=== PATIENT | female | born 2005 | race Caucasian/White ===

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

== ENCOUNTER → 2024-10-25 | Outpatient (CLI) | payer BC, SELFPAY ==
[2024-10-25 17:57] LABS: HIV Nonreactive (Nonreactive); Syphilis Antibodies Nonreactive (Nonreactive)
[2024-10-27 20:08] LABS: HCV Quant. RNA PCR HCV Not Detected IU/mL (.); HSV 1 IgG Non Reactive (Non Reactive); HSV 2 IgG Non Reactive (Non Reactive)
== END | disposition home or self-care (01) ==
PROVIDERS: Visit Provider Nurse Practitioner Women's Health
DX: Z20.2 Contact with and (suspected) exposure to infections with a predominantly sexual mode of transmission (principal)
CPT/HCPCS: 36415; 86695; 86696; 86703; 86780; 87522

== ENCOUNTER → 2024-10-29 | Outpatient (CLI) | payer BC, SELFPAY | END | disposition home or self-care (01) | LOC: LABSPEC 17:03 | PROVIDERS: Referring Provider Nurse Practitioner Family; Visit Provider Nurse Practitioner Family | DX: Z11.3 Encounter for screening for infections with a predominantly sexual mode of transmission (principal) | CPT/HCPCS: 87491; 87591 ==

== ENCOUNTER → 2025-01-26 | Outpatient (CLI) | payer BC, SELFPAY ==
[2025-01-26 15:54] LABS: HIV Nonreactive (Nonreactive); Hepatitis B Surface Antigen Nonreactive (Nonreactive); Syphilis Antibodies Nonreactive (Nonreactive)
[2025-01-27 21:07] LABS: Chlamydia By Nucleic Acid AMP Negative (Negative); Gonococcus By Nucleic Acid AMP Negative (Negative)
== END | disposition home or self-care (01) ==
PROVIDERS: Referring Provider Nurse Practitioner Women's Health; Visit Provider Nurse Practitioner Women's Health
DX: Z20.2 Contact with and (suspected) exposure to infections with a predominantly sexual mode of transmission (principal)
CPT/HCPCS: 36415; 86695; 86696; 86703; 86780; 87340; 87491; 87591

== ENCOUNTER 2025-05-11 09:47 | Emergency (ER) | payer BC, SELFPAY ==
[2025-05-11 09:47] VITALS: BP 105/70; PULSE 97; RESP 16; TEMP 36.1; O2SAT 100; BMI 17.4
[2025-05-11 10:21] LABS: Hematocrit 46.2 % (37-47); Hemoglobin 15.0 g/dL (12.0-15.0); Immature Granulocytes Count 0.010 X10^3/uL (0.0-0.0); Mean Corp Hgb Conc 32.5 g/dL (32-36); Mean Corpuscular Volume 91.3 fL (81-99); Mean Platelet Vol. 10.0 fl (6.2-12.0); NRBC Flagged by Analyzer 0 % (0-5); Platelet Count 239 K/mm3 (150-450); RBC Distribution Width CV 12.6 % (11.6-14.6); RBC Distribution Width SD 42.3 fl (35.1-43.9); Red Blood Count 5.06 M/mm3 (4.2-5.4); White Blood Count 3.8 K/mm3 (4.4-11.0)
[2025-05-11] MEDS: 0.9% Normal Saline (1000mL) 1,000 ML 999 ML IV (10:31)
[2025-05-11 10:33] LABS: Internal QC Validated? YES +Cl - CLEAR BKGD; Pregnancy, Serum, hCG Quali. NEGATIVE Negative
[2025-05-11 10:37] LABS: Red Blood Cells-Urine 0 SEEN /hpf (0-5)
[2025-05-11 10:41] LABS: Color, Urine Yellow (Yellow); Glucose, Dipstick Normal (Normal); Ketone-Dipstick 50 mg/dl (Negative); Leukocyte Esterase-Dipstick 25 /ul (Negative); Nitrite-Dipstick Negative (Negative); Occult Blood-Urine 10 /ul (Negative); Protein-Dipstick 30 mg/dl (Negative); Specific Gravity, Urine 1.025 (1.002-1.030)
[2025-05-11 10:42] LABS: Urine Bilirubin Dipstick 1 mg/dL (Negative)
--- NOTE | 2025-05-11 10:43 | EX.ED.GENINJ ---
HPI History of Present Illness Chief Complaint: Nausea/Vomiting Narrative Narrative: Patient is a 19-year-old female presenting to the emergency department for nausea, vomiting and diarrhea. Patient has past medical history of irregular menstrual cycle. 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 States Friday she started to improve and did really have any symptoms but slept most of the day. She thought she was getting better and ate some regular food yesterday and then developed to the nausea, vomiting and diarrhea again. States last time she vomited was last night around midnight. She had about 4-5 episodes of nonbloody diarrhea yesterday and then 1 time this morning. She endorses some abdominal discomfort that she associates with the nausea. She denies any fever, chills, chest pain, shortness of breath, dysuria, hematuria. She denies any recent antibiotic use or travel or hospitalizations. States that her last period was about 1-1/2 months ago but states that this is normal for her as her periods are irregular. She denies any abnormal vaginal discharge. Denies any history of abdominal surgeries. She has taken Pepto-Bismol for symptomatic control otherwise has not taken any other medications. Endorses occasional alcohol use, denies any marijuana use. 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 ROS ROS ED ROS Narrative see HPI EXAM Physical Exam Narrative Exam Narrative: Vital signs: Reviewed General: Alert and oriented x 3. No acute distress. Well-appearing, nontoxic HEENT: Head is normocephalic and atraumatic, sinuses nontender, pupils equal round and reactive. Nares are patent. Oropharynx and throat exams normal. Moist mucous membranes. Neck: Supple without lymphadenopathy nontender Cardiovascular: Regular rate and rhythm, no murmurs. No rubs or gallops. Normal S1 and S2 Respiratory: Clear to auscultation bilaterally. No wheezes, rales, rhonchi Abdominal: Soft and nontender to palpation. Normal bowel sounds. No guarding or rebound. Nonsurgical abdomen Extremities: No tenderness. No bruising. Normal range of motion. Normal sensation. Skin: No rash or redness. The rest of the physical exam is unremarkable Const Vital Signs: 05/11/25 09:47 05/11/25 11:59 Temperature 96.9 F L 97.6 F L Temperature Source Temporal Pulse Rate 97 97 Respiratory Rate 16 16 Blood Pressure 105/70 105/70 Blood Pressure Mean 81 81 Pulse Ox 100 100 Oxygen Delivery Method Room Air MDM MDM MDM Narrative Medical decision making narrative: Patient is a 19-year-old female presenting to the emergency department for nausea, vomiting and diarrhea that started on Friday. Patient was seen and examined. Vitals are stable. Patient resting bed comfortably no acute distress. Differential includes but is not limited to: Gastroenteritis, viral syndrome, electrolyte imbalance, UTI less likely intra-abdominal pathology including pancreatitis, cholecystitis, appendicitis, colitis or diverticulitis given nontender on abdominal exam Patient given fluid bolus and zofran. Labs including CBC, CMP, lipase, urinalysis, urine preg ordered. Again I do not think the patient requires imaging of her abdomen given she is nontender on exam and has stable vital signs. If she has improvement in her symptoms after fluids and Zofran has a largely negative lab work will continue with plan. CBC with mild leukopenia 3.8 and normal hemoglobin. CMP with no significant normalities. Lipase within normal limits. is negative. Urinalysis with small amount of leukocyte esterase and 1+ bacteria. Negative nitrites and WBC. No other signs of infection. She is not having any urinary symptoms. After Zofran and fluid bolus she p.o. challenge with crackers and water and tolerated well. She states she is feeling much better. Abdominal exam is again unremarkable. She will be given Zofran for home. Instructed to follow-up with PCP for repeat labs to ensure after the viral illness her leukopenia resolves. Patient discharged from the Emergency Department. I do not feel that the patient's evaluation reveals any acute reason for admission at this time. I instructed them to either follow-up with their primary care physician or promptly return to the Emergency Department for reevaluation should symptoms worsen or new symptoms develop. I explained what symptoms would indicate the need to return to the emergency department. Shared decision making was used. The patient voiced understanding of the treatment plan and is agreeable with it. Clinical impression Nausea and vomiting Diarrhea History & Record Review Discussion w/independent historian: Patient and Family Lab Data Attestation: I reviewed the patient's lab results. Labs: Laboratory Results - last 24 hr 05/11/25 05/11/25 10:15 10:34 WBC 3.8 L RBC 5.06 Hgb 15.0 Hct 46.2 MCV 91.3 MCH 29.6 MCHC 32.5 RDW Std Deviation 42.3 RDW Coeff of Alejo 12.6 Plt Count 239 MPV 10.0 Immature Gran % (Auto) 0.300 Neut % (Auto) 57.6 Lymph % (Auto) 30.4 Ritchie % (Auto) 9.7 Eos % (Auto) 1.0 Baso % (Auto) 1.0 Absolute Neuts (auto) 2.2 Absolute Lymphs (auto) 1.16 Nucleated RBC % 0 Sodium 138 Potassium 3.8 Chloride 103 Carbon Dioxide 23.4 Anion Gap 11 BUN 17 Creatinine 0.84 Estim Creat Clear Calc 87.97 Est GFR (MDRD) Non-Af 102 BUN/Creatinine Ratio 20.3 H Glucose 95 Calcium 9.2 Total Bilirubin 0.59 AST 31 ALT 32 Alkaline Phosphatase 55 Total Protein 7.7 Albumin 4.8 Globulin 2.9 Albumin/Globulin Ratio 1.7 Lipase 34 Serum , Qual NEGATIVE Urine Color Yellow Urine Clarity Sl. Cloudy Urine pH 6.0 Ur Specific [place] 1.025 Urine Protein 30 H Urine Glucose (UA) Normal Urine Ketones 50 H Urine Occult Blood 10 H Urine Nitrite Negative Urine Bilirubin 1 H Urine Urobilinogen Normal Ur Leukocyte Esterase 25 H Urine RBC 0 SEEN Urine WBC 0-5 SEEN Ur Squamous Epith Cells 5-10 SEEN Urine Bacteria 1+ Urine Mucus 2+ Discharge Plan Triage Chief Complaint: Nausea/Vomiting ED Provider: Joanne Ellis Dx/Rx/DC Orders Clinical Impression: Nausea, vomiting, and diarrhea Instructions: ED Gastroenteritis, Viral (Adult) Prescriptions: New ondansetron 4 mg tablet,disintegrating 4 mg PO Q8H PRN PRN (Reason: Nausea) Qty: 10 0RF Primary Care Provider: Shraddha Lopez Referrals: Shraddha Lopez, YAHIR [Primary Care Provider, Medical] - As soon as possible Activity Restrictions/Additional Instructions: Take the Zofran every 8 hours for nausea and vomiting. Drink lots of fluids at home. Your evaluation in the Emergency Department did not reveal any acute reason for admission. However, I want to emphasize that you may be early in the course of a disease process or illness even if it is not present. For this reason you should follow-up within 24 hours for reevaluation with either your primary care physician or if necessary back here in the Emergency Department. You should return to the Emergency Department immediately if your symptoms worsen or new symptoms develop. Print Language: Nigerian Disposition Disposition: Home, Self Care Discharge Date/Time: 05/11/25 12:04
--- OUTSIDE RECORDS SUMMARY | 2025-05-11 10:49 | XMS RPT_ITS | CCD ---
Author Organization [facility] Care Team Providers Care Candy Depositing Machine Operator Name Role Phone Whitley Quan MD Primary Care Provider Dr. Whitley Quan Primary Care Provider Dr. Whitley Quan Referring Provider Sonam REVENUE OFFICER, ANDREA-C Bety Attending Provider Whitley Quan MD Primary Care Provider Sonam MENDEZ, ANDREA-C Bety Attending Provider DO Carrie Costa Primary Care Provider DO Carrie Costa Referring Provider Royce Nguyen MD Primary Care Provider GRISEL JOVEL CNP Attending Unavailable GRISEL JOVEL CNP Attending Unavailable Whitley Quan MD Primary Care Provider Royce Nguyen MD Primary Care Provider Erika Batista APRN.CNP Unavailable Shraddha Lopez PA-C Unavailable ROYCE NGUYEN Primary Care Unavailable ROYCE NGUYEN Primary Care Unavailable ROYCE NGUYEN Primary Care Unavailable SHRADDHA LOPEZ Attending Unavailable ROYCE NGUYEN Primary Care Unavailable Sonam MENDEZ-CBety Attending Provider Beth Villagomez Attending Provider Care Physician, No Primary Primary Care Provider Unavailable Beth Villagomez Referring Provider Care Physician, No Primary Referring Provider Un available Sonam REVENUE OFFICER-C, Bety Referring Provider [phone] Sonam REVENUE OFFICER-C, Bety Attending Physician [phone] Manpreet MENDEZ-C, Beth Attending Physician [phone] Care Physician, No Primary Primary Care Physicia n Unavailable Beth Case Attending Unavailable Sonam REVENUE OFFICER, Bety Attending Unavailable Care Physician, No Primary Primary Care Unava ilable Care Physician, No Primary Referring Unava ilable Beth Case Attending Unavailable Sonam REVENUE OFFICER, Bety Attending Unavailable Beth Case Attending Unavailable Beth Case Referring Unavailable Care Physician, No Primary Primary Care Unava ilable Sonam REVENUE OFFICER, Bety Attending Unavailable Sonam REVENUE OFFICER, Bety Referring Unavailable Care Physician, No Primary Primary Care Unava ilable Allergies Allergy Classification Reported Allergen(s) Allergy Type Date of Onset Reaction(s) Facility (12 sources) Seasonal allergy; Translations: [SEASONAL ALLERGIES] Propensity to adverse reactions 4 Other: See Comments [facility] Work Phone: Medications Current Medications Medication Drug Class(es) Dates Sig (Normalized) Sig (Original) amoxicillin 875 mg / clavulanate 125 mg oral tablet (1 source) Penicillin-class Antibacterial Start: 05-04-2024 End: 05-11-2024 take 1 tablet by mouth twice daily amoxicillin-clavul anate potassium (AUGMENTIN) 875-125 mg per tablet Take 1 tablet by mouth two times a day for 7 days. 14 tablet 05/04/2024 05/11/2024 Active brompheniramine maleate 0.4 mg/ml / dextromethorphan hydrobromide 2 mg/ml / pseudoephedrine hydrochloride 6 mg/ml oral solution (2 sources) alpha-Adrenergic Agonist, Uncompetitive X-vghbth-S-aspartat e Receptor Antagonist, Sigma-1 Agonist Start: 05-04-2024 take 10 mL by mouth every six hours as needed Brompheniramine-Ps eudoeph-DM (BROMFED DM) 2-30-10 mg/5 mL syrup Take 10 mL by mouth four times a day as needed. 200 mL 05/04/2024 Active fexofenadine hydrochloride 180 mg oral tablet (8 sources) Histamine-1 Receptor Antagonist Start: 07-21-2023 take 1 tablet by mouth once daily fexofenadine (JULITA ALLERGY) 180 mg tablet Take 1 tablet by mouth once daily. 07/21/2023 Active Comment on above: Take 1 tablet by sivan once daily. fluticasone propionate 0.05 mg/actuat metered dose nasal spray (11 sources) Corticosteroid Start: 09-08-2014 take 1 spray(s) nasal route once daily fluticasone (FLONASE) 50 mcg/actuation nasal spray Use 1 [place] in each nostril once daily. 1 Bottle 0 09/08/2014 Active Comment on above: Use 1 [place] in each nostril once daily. hydrocortisone valerate 2 mg/ml topical cream (1 source) Corticosteroid Start: 11-25-2022 End: 11-30-2022 hydrocortisone valerate (WESTCORT) 0.2 % cream Apply to affected area twice daily for 5 days. 45 g 1 11/25/2022 11/30/2022 Active Comment on above: Apply to affected ar ea twice daily for 5 days. oxymetazoline hydrochloride 0.5 mg/ml nasal spray (3 sources) Start: 05-03-2024 End: 05-08-2024 oxymetazoline (AFRIN, OXYMETAZOLINE,) 0.05 % nasal spray Use 2 Sprays in each nostril two times a day for 5 days. 22 mL 05/03/2024 05/08/2024 Active polymyxin b 51971 unt/ml / trimethoprim 1 mg/ml ophthalmic solution (1 source) Dihydrofolate Reductase Inhibitor Antibacterial, Polymyxin-class Antibacterial Start: 05-04-2024 End: 05-11-2024 take 1 drop(s) into the eye(s) every four hours trimethoprim-polym yxin (POLYTRIM) 10,000 unit- 1 mg/mL ophthalmic solution Use 1 Drop in both eyes every 4 hours for 7 days. 10 mL 05/04/2024 05/11/2024 Active Completed/Discontinued Medications Medication Drug Class(es) Dates Sig (Normalized) Sig (Original) Levonorgestrel-Et hinyl Estrad (20 sources) Progestin, Estrogen, Progestin-containin g Intrauterine Device Start: 10-29-2024 End: 01-26-2025 take 1 tablet by mouth once daily Levonorgestrel-Eth inyl Estrad (Aviane) 0.1-20 mg-mcg tablet Discontinued 1 {tbl} PO daily 15 05October 29, 2024 4:07pm January 26, 2025 11:47am Start: 10-29-2024 take 1 tablet by sivan th once daily Levonorgestrel-Ethinyl Estrad (Aviane) 0.1-20 mg-mcg tablet Active 1 {tbl} PO daily October 29, 2024 4:07pm Start: 10-20-2024 End: 10-29-2024 take 1 tablet by mouth once daily Levonorgestrel-Ethinyl Estrad (Aviane) 0.1-20 mg-mcg tablet Discontinued 1 {tbl} PO daily 15 05October 20, 2024 1:40pm October 29, 2024 4:08pm Start: 10-20-2024 End: 10-29-2024 take 1 tablet by mouth once daily Levonorgestrel-Ethinyl Estrad (Aviane) 0.1-20 mg-mcg tablet Discontinued 1 {tbl} PO daily October 20, 2024 1:40pm October 29, 2024 4:08pm Start: 10-20-2024 take 1 tablet by sivan th once daily Levonorgestrel-Ethinyl Estrad (Aviane) 0.1-20 mg-mcg tablet Active 1 {tbl} PO daily October 20, 2024 1:40pm Start: 08-24-2024 End: 10-20-2024 take 1 tablet by mouth once daily Levonorgestrel-Ethinyl Estrad (Aviane) 0.1-20 mg-mcg tablet Discontinued 1 {tbl} PO daily 15 05August 24, 2024 4:53pm October 20, 2024 1:40pm Start: 08-24-2024 End: 10-20-2024 take 1 tablet by mouth once daily Levonorgestrel-Ethinyl Estrad (Aviane) 0.1-20 mg-mcg tablet Discontinued 1 {tbl} PO daily August 24, 2024 4:53pm October 20, 2024 1:40pm Start: 07-23-2024 End: 08-24-2024 take 1 tablet by mouth once daily Levonorgestrel-Ethinyl Estrad (Aviane) 0.1-20 mg-mcg tablet Discontinued 1 {tbl} PO daily July 23, 2024 6:41pm August 24, 2024 4:54pm Start: 07-23-2024 End: 08-24-2024 take 1 tablet by mouth once daily Levonorgestrel-Ethinyl Estrad (Aviane) 0.1-20 mg-mcg tablet Discontinued 1 {tbl} PO daily July 23, 2024 6:41pm August 24, 2024 4:54pm Start: 06-25-2024 End: 07-23-2024 take 1 tablet by mouth once daily Levonorgestrel-Ethinyl Estrad (Aviane) 0.1-20 mg-mcg tablet Discontinued 1 {tbl} PO daily 15 05June 25, 2024 11:24am July 23, 2024 6:41pm Start: 06-25-2024 End: 07-23-2024 take 1 tablet by mouth once daily Levonorgestrel-Ethinyl Estrad (Aviane) 0.1-20 mg-mcg tablet Discontinued 1 {tbl} PO daily June 25, 2024 11:24am July 23, 2024 6:41pm Start: 04-29-2024 End: 06-25-2024 take 1 tablet by mouth once daily Levonorgestrel-Ethinyl Estrad (Aviane) 0.1-20 mg-mcg tablet Discontinued 1 {tbl} PO daily 15 05April 29, 2024 2:41pm June 25, 2024 11:25am Start: 04-29-2024 End: 06-25-2024 take 1 tablet by mouth once daily Levonorgestrel-Ethinyl Estrad (Aviane) 0.1-20 mg-mcg tablet Discontinued 1 {tbl} PO daily April 29, 2024 2:41pm June 25, 2024 11:25am Start: 04-14-2024 End: 04-29-2024 take 1 tablet by mouth once daily Levonorgestrel-Ethinyl Estrad (Aviane) 0.1-20 mg-mcg tablet Discontinued 1 {tbl} PO daily April 14, 2024 6:49pm April 29, 2024 2:42pm Start: 04-14-2024 End: 04-29-2024 take 1 tablet by mouth once daily Levonorgestrel-Ethinyl Estrad (Aviane) 0.1-20 mg-mcg tablet Discontinued 1 {tbl} PO daily April 14, 2024 6:49pm April 29, 2024 2:42pm Start: 02-03-2024 take 1 tablet by sivan th once Levonorgestrel-Ethinyl Estrad 0.1mg - 20mcg per tablet Take 1 tablet by mouth every afternoon. 02/03/2024 Active Start: 12-09-2023 End: 04-14-2024 take 1 tablet by mouth once daily Levonorgestrel-Ethinyl Estrad (Aviane) 0.1-20 mg-mcg tablet Discontinued 1 {tbl} PO daily 13 09December 09, 2023 12:00am April 14, 2024 6:50pm Start: 12-09-2023 End: 04-14-2024 take 1 tablet by mouth once daily Levonorgestrel-Ethinyl Estrad (Aviane) 0.1-20 mg-mcg tablet Discontinued 1 {tbl} PO daily December 09, 2023 12:00am April 14, 2024 6:50pm fexofenadine / Pseudoephedrine (4 sources) alpha-Adrenergic Agonist, Histamine-1 Receptor Antagonist End: 07-21-2023 take 0.5 tablet by mouth once daily as needed FEXOFENADINE/PSEUDOEPHEDRINE (JULITA-D 24 HOUR ORAL) Take 0.5 tablets by mouth once daily as needed. 07/21/2023 Discontinued End: 07-21-2023 take 0.5 tablet by mouth once daily as needed FEXOFENADINE/PSEUDOEPHEDRINE (JULITA-D 24 HOUR ORAL) Take 0.5 tablets by mouth once daily as needed. 0 07/21/2023 Discontinued take 0.5 tablet by mouth once daily as needed FEXOFENADINE/PSEUDOEPHEDRINE (JULITA-D 24 HOUR ORAL) Take 0.5 tablets by mouth once daily as needed. 0 Active Comment on above: Take 0.5 tablets by mouth once daily as needed. Problems Active Problems Problem Classification Problem Date Documented Date Episodic/Chronic Immunizations and screening for infectious disease (10 sources) At risk of sexually transmitted infection ; Translations: [Contact with and (suspected) exposure to infections with a predominantly sexual mode of transmission] Onset: 01-26-2025 10-29-2024 Episodic Inflammation; infection of eye (except that caused by tuberculosis or sexually transmitteddisease) (1 source) Acute conjunctivitis of bilateral eyes; Translations: [Unspecified acute conjunctivitis, bilateral] 05-04-2024 Episodic Lymphadenitis (2 sources) Axillary lymphadenopathy; Translations: [Localized enlarged lymph nodes] Episodic Menstrual disorders (8 sources) Irregular periods; Translations: [Irregular menstruation, unspecified] 04-29-2024 Chronic Other lower respiratory disease (1 source) Cough; Translations: [Cough] 03-26-2021 Episodic Other screening for suspected conditions (not mental disorders or infectious disease) (4 sources) Patient encounter status; Translations: [Encounter for screening for lipoid disorders] 07-21-2023 Episodic Other skin disorders (1 source) Nonscarring hair loss, unspecified; Translations: [Alopecia, unspecified] 06-12-2023 Episodic Other upper respiratory disease (12 sources) Seasonal allergy; Translations: [Other seasonal allergic rhinitis] Onset: 09-22-2013 09-22-2013 Chronic Other upper respiratory disease (1 source) Congestion of nasal sinus; Translations: [Nasal congestion] 05-04-2024 Episodic Other upper respiratory infections (3 sources) Upper respiratory infection; Translations: [Acute upper respiratory infection, unspecified] Episodic Screening and history of mental health and substance abuse codes (2 sources) Encounter for screening for depression; Translations: [Encounter for screening examination for other mental health and behavioral disorders] Onset: 09-30-2024 Episodic Superficial injury; contusion (7 sources) Contusion of face; Translations: [Contusion of other part of head, initial encounter] 05-15-2021 Episodic Viral infection (1 source) Viral disease; Translations: [Viral infection, unspecified] 05-03-2024 Episodic Past or Other Problems Problem Classification Problem Date Documented Da te Episodic/Chronic Residual codes; unclassified (9 sources) FH: Thyroid disorder; Translations: [Family history of other endocrine, nutritional and metabolic diseases] Onset: 07-21-2023 07-21-2023 Episodic Residual codes; unclassified (9 sources) Family history of cardiac disorder; Translations: [Family history of ischemic heart disease and other diseases of the circulatory system] Onset: 07-21-2023 07-21-2023 Episodic Results Test Name Value Interpretation Reference Range Facility Chlamydia/GC TOÑO aptimaon CHLAMY,NUC ACID Negative Normal Negative [facility] Comment on above: Performed By: #### L 3400.1610, L7000.1800, L509.8002, L3890.6006, L3890.6102 #### [facility] [address] [place], [address] GC BY NUC ACID Negative Normal Negative [facility] Comment on above: Performed By: #### L 3400.1610, L7000.1800, L509.8002, L3890.6006, L3890.6102 #### [facility] [address] [place], [address] HSV 1 AND 2 IgGon 01-27-2025 HSV 1 IgG Non-Reactive Normal Non Reactive [facility] Comment on above: Result Comment: Pl ease note reference interval change HSV-1 IgG testing performed using the [employer] Elecsys HSV-1 IgG assay. Performed By: #### L 3400.1610, L7000.1800, L509.8002, L3890.6006, L3890.6102 #### [facility] [address] [place], [address] HSV 2 IgG Non-Reactive Normal Non Reactive [facility] Comment on above: Result Comment: Pl ease note reference interval change Current guidelines and recommendations do not recommend routine screening for HSV-2 in asymptomatic individuals, including those that are . The detection of HSV-2 IgG antibodies in a single sample indicates previous exposure to HSV-2 but does not give information as to the site of HSV infection or the timing of exposure. The predictive value of positive and negative results depends on the population's prevalence and the pretest likelihood of HSV-2. HSV-2 IgG testing performed using the [employer] Elecsys HSV-2 IgG assay. Performed at: [address] [id number] Crew Supervisor: Emma Brandon MD, Phone: [phone] Performed at: [address] [id number] Crew Supervisor: Cornelio Leo PhD, Phone: [phone] Performed By: #### L 3400.1610, L7000.1800, L509.8002, L3890.6006, L3890.6102 #### [facility] [address] [place], [place], [id number] Chlamydia trachomatis rRNA d etection by probe and target amplification methodOrdered By: Bety Masters on 01-26-2025 C. trachomatis rRNA TOÑO+probe Ql (Unsp spec) Negative Negative [facility] HIVon 01-26-2025 HIV Non-Reactive Normal Nonreactive [facility] Comment on above: Result Comment: Non- Reactive Reactive Repeatedly reactive samples must be confirmed according to CDC recommended confirmatory algorithms. The subresults for either HIVAG or AHIV can be used as an aid in the selection of the confirmation algorithm for reactive samples. Send out specimens with Reactive results to [facility] for confirmation. Order the HIV antibody detection and differentiation: lc#[id number] Performed By: #### L 3400.1610, L7000.1800, L509.8002, L3890.6006, L3890.6102 #### [facility] [address] [place], [address] L3890.6102on 01-26-2025 HEP B Surf Ag Non-Reactive Normal Nonreactive [facility] Comment on above: Result Comment: Reac tive: Presumptive evidence of HBV. Repeatedly reactive samples must be confirmed using a neutralization test (Elecsys HBsAg Confirmatory Test) Non-Reactive: HBsAg not detected; does not exclude the possibility of exposure to HBV Performed By: #### L 3400.1610, L7000.1800, L509.8002, L3890.6006, L3890.6102 #### [facility] [address] [place], [place], [id number] Laboratory - Microbiology an d Antimicrobial susceptibilityOrdered By: Bety Masters on 01-26-2025 HBV surface Ag Ql (S) Non-Reactive Nonreactive [facility] Comment on above: Reactive: Presumptiv e evidence of HBV. Repeatedly reactive samples must be confirmed using a neutralization test (Elec[employer]ok[employer]ys HBsAg Confirmatory Test)Non-Reactive: HBsAg not detected; does not exclude the possibility of exposure to HBV Neisseria gonorrhoeae nuclei c acid detection by amplified probe techniqueOrdered By: Bety Masters on 01-26-2025 N. gonorrhoeae DNA TOÑO+probe Ql (Unsp spec) Negative Negative [facility] No Panel InformationOrdered By: Bety Masters on 01-26-2025 HIV (1&2) Antibody Non-Reactive Nonreactive [facility] Comment on above: Non-ReactiveReactive Repeatedly reactive samples must be confirmed according to CDC recommended confirmatory algorithms. The subresults for either HIVAG or AHIV can be used as an aid in the selection of the confirmation algorithm for reactive samples.Send out specimens with Reactive results to [facility] for confirmation.Order the HIV antibody detection and differentiation: #[id number] POC Trichomonas (Rapid) Negative [facility] Lead Web Application Developer Office Visit Reporton 01-26-2025 Lead Web Application Developer Office Visit Report [facility] [address], [address] [place] [address] OFFICE VISIT Date of Service: 01/26/25 MR#: [id number] Acct: [id number] Name: BARB BENNETT Rep #: [id number] : 2005 Provider: MARIA DEL ROSARIO dutton Age/Sex: 19/F Location[place] [facility] [place] Status: Signed Intake Vital Signs 10/29/24 15:49 01/26/25 11:35 01/26/25 11:38 Height 5 ft 8 in 5 ft 8 in 5 ft 8 in Weight: 111 lb 6 oz 113 lb BMI 16.9 17.2 BP 115/75 115/71 Intake Visit Reasons: STD Testing Chief Complaint: STD testing Coating Operator Required: No Is patient in pain?: No Allergies No Known Allergies Allergy (Verified 01/26/25 11:44) Is last menstrual period known: Yes Last Menstrual Period: 01/17/25 Post menopausal: No Patient : No : No [facility] [place] Social History adopted: No number of children: 0 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 HPI STD Testing Details: BARB BENNETT is a 19 year old who presents for STD evaluation. New partner X 1 episode. Not currently sexually active, does not want to be. Is no longer taking OCP Female Reproductive History Last Menstrual Period: 01/17/25 Cycle Length: 21-35 Questions: metrorrhagia: No and sexually active: No ROS Const Constitutional: Reports system reviewed and no additional complaints, except as documented Eyes Eyes: Reports system reviewed and no additional complaints, except as documented GI GI: Denies abdominal pain or change in bowel habits : Reports as per HPI Exam Const General: cooperative and no acute distress Orientation: oriented x3 General: bladder normal to palpation External Female Exam: normal external appearance and normal appearance of the urethra Urethra: normal appearance of the urethra Speculum Exam - Vagina: normal appearance of the vagina, normal vaginal discharge, no lesions and nontender Speculum Exam - Cervix: normal appearance of the cervix Bimanual Exam- Vagina Uterus: normal bimanual exam, uterine size normal, bladder normal to palpation, uterine shape normal, uterine mobility normal and non-tender Bimanual Exam- Adnexa, other: normal adnexae, no masses and non-tender Coding Level of Care Code Off vis,est,level 3 Diagnoses Possible exposure to STD Z20.2 Assessment and Plan Assessment and Plan (1) Possible exposure to STD: Status: Acute Orders: Orders POC Trichomonas Vaginalis Today Z11.3 - Encounter for screening for infections with a predominantly sexual mode of transmission HSV 1 2 IgG Today Z20.2 - Contact with and (suspected) exposure to infections with a predominantly sexual mode of transmission HIV Today Z20.2 - Contact with and (suspected) exposure to infections with a predominantly sexual mode of transmission Syphilis Antibodies Today Z20.2 - Contact with and (suspected) exposure to infections with a predominantly sexual mode of transmission Hepatitis B Surface Antigen Today Z20.2 - Contact with and (suspected) exposure to infections with a predominantly sexual mode of transmission Chlamydia/GC TOÑO aptima Today Z20.2 - Contact with and (suspected) exposure to infections with a predominantly sexual mode of transmission Medications: Discontinued levonorgestrel-ethin yl estrad 0.1-20 mg-mcg (Aviane) Discontinued Reason: Pt no longer taking 1 TAB PO QDAY 28 tabs 12RF Plan See labs pending and call positives Enc condom use Call if wants restart contraception RTO prn, annual exam 01/26/25 1155 Date Bety Masters REVENUE OFFICER REVENUE OFFICER-C Cosigner Signature: Date (if applicable) CC: Normal [facility] Serum herpes simplex virus 2 antibody assay by immunoassay (units/volume)Ordered By: Bety Masters on 01-26-2025 HSV 2 Ab IA Qn (S) Non-Reactive Non Reactive [facility] Comment on above: Please note refere nce interval changeCurrent guidelines and recommendations do not recommendroutine screening for HSV-2 in asymptomatic individuals,including those that are . The detection of HSV-2IgG antibodies in a single sample indicates previousexposure to HSV-2 but does not give information as to thesite of HSV infection or the timing of exposure. Thepredictive value of positive and negative results dependson the population's prevalence and the pretest likelihoodof HSV-2. HSV-2 IgG testing performed using the [employer] HSV-2 IgG assay.Performed at: =[facility] [employer] [facility])[address] [id number] Director: Emma Brandon MD, Phone: [phone] at: [address] [id number] Director: Cornelio Leo PhD, Phone: [phone] Syphilis Antibodieson 2024 Syphilis Abs Non-Reactive Normal Nonreactive [facility] Comment on above: Performed By: #### L 3400.1610, L7000.1800, L509.8002, L3890.6006, L3890.3162 #### [facility] [address] [place], [address] M8200.2203on 10-29-2024 M8200.2203 Chlamydia Trachomatis PCR NEGATIVE for Chlamydia trachomatis N. gonorrhoeae PCR Negative for N. gonorrhoeae Normal [facility] Comment on above: Performed By: #### M 8200.220 #### [facility] [address] [place], [address] Lead Web Application Developer Office Visit Reporton 10-29-2024 Lead Web Application Developer Office Visit Report [facility] [address], [address] [place] [address] OFFICE VISIT Date of Service: 10/29/24 MR#: [id number] Acct: [id number] Name: BARB BENNETT Rep #: [id number] : 2005 Provider: MARIA DEL ROSARIO Matson Age/Sex: 19/F Location[place] [facility] [place] Status: Signed Intake Vital Signs 04/29/24 13:18 10/29/24 15:49 Height 5 ft 8 in 5 ft 8 in Weight: 118 lb 111 lb 6 oz BMI 17.9 16.9 BP 103/67 115/75 Intake Visit Reasons: annual/Problem * PT CAN'T COME IN EARLY* Coating Operator Required: No Is patient in pain?: No Allergies No Known Allergies Allergy (Verified 04/29/24 13:22) Medications ???Medication ???Instructions ???Recorded ???Confirmed ???Type levonorgestrel-ethin yl estradiol 1 tab PO QDAY #28 tabs 10/29/24 Rx 0.1 mg-20 mcg tablet (Aviane) Is last menstrual period known: Yes Last Menstrual Period: 10/28/24 Post menopausal: No Patient : No : No Control Method: ocp- aviane [facility] Social History adopted: No number of children: 0 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 HPI annual/Problem * PT CAN'T COME IN EARLY* Details: BARB BENNETT is a 19 year old who presents for annual exam. She reports no other issues or concerns today other than she would like STD testing; 1 previous partner. No symptoms; she did have blood work already complete that was negative. Last PAP: age 20 History of abnormal PAP: n/a Last mammogram: age 39 History of abnormal mammogram: n/a Colon cancer screening: age 44 Other preventative health care screenings: [facility] O[facility] Female Reproductive History Last Menstrual Period: 10/28/24 Cycle Length: 21-35 Questions: metorrhagia: No, sexually active: Yes (not currently), dyspareunia: No and PCB: No ROS Const Constitutional: Reports system reviewed and no additional complaints, except as documented; Denies body ache, chills or fever(s) ENT ENT: Denies dizziness Cardio Card: Denies chest pain, chest pain at rest or palpitations Resp Resp: Reports system reviewed and no additional complaints, except as documented; Denies cough or dyspnea : Reports as per HPI; Denies pelvic pain, vaginal discharge, vaginal dryness, vaginal odor or vaginal pruritus Neuro Neuro: Denies dizziness Psych Psych: Reports system reviewed and no additional complaints, except as documented; Denies anxiety or depression Exam Const General: cooperative and no acute distress Orientation: oriented x3 HENMT Head: normal to inspection and normocephalic Eyes General: appearance normal, both eyes and all related structures Neck Neck: normal visual inspection Resp Effort Inspection: normal respiratory effort and able to speak in complete sentences Auscultation: clear to auscultation bilaterally Cardio Rate: regular rate Rhythm: regular rhythm Heart Sounds: S1 normal and S2 normal Neuro Cognition: normal cognition Speech: speech normal Psych Appearance: grossly normal Mood: congruent mood Affect: normal affect Speech and Movement: speech and movement normal Attitude: cooperative Judgment: judgment good Coding Level of Care Code Established Pt Off vis,est,prev 18-39yrs Patient Type Established Diagnoses Women's annual routine gynecological examination Z01.419 Irregular menstrual cycle N92.6 Possible exposure to STD Z20.2 Assessment and Plan Assessment and Plan (1) Women's annual routine gynecological examination: Status: Acute Plan: Breast and pelvic exam deferred d/t currently guideline/recommenda tions. PAP due: routine screening age 20 Mammogram due: routine screenings age 39 Advised self breast exams monthly. Contraception: OCP Advised incorporating healthy dietary choices such as increase in lean meats, fruits/vegetables, less processed food/sat fat/trans fats. Increase exercise to 30 minutes per day/5 days a week. This can include both weight bearing exercises and/or brisk walking. Follow up with PCP for further preventative health screenings. Follow up 1 year for repeat annual cloth folder hand exam. Call office sooner with questions or concerns. (2) Irregular menstrual cycle: Status: Acute Plan: Doing well with this; no side effects and would like to continue. Refills sent. (3) Possible exposure to STD: Status: A (more content not included)... Normal [facility] HSV 1 AND 2 IgGon 10-27-2024 HSV 1 IgG Non-Reactive Normal Non Reactive [facility] Comment on above: Result Comment: Pl ease note reference interval change HSV-1 IgG testing performed using the [employer] HSV-1 IgG assay. Performed By: #### L 7000.7000, L509.8002, L3890.6006, L3400.1610 ####[facility] [address] [place], [place], [id number] HSV 2 IgG Non-Reactive Normal Non Reactive [facility] Comment on above: Result Comment: Pl ease note reference interval change Current guidelines and recommendations do not recommend routine screening for HSV-2 in asymptomatic individuals, including those that are . The detection of HSV-2 IgG antibodies in a single sample indicates previous exposure to HSV-2 but does not give information as to the site of HSV infection or the timing of exposure. The predictive value of positive and negative results depends on the population's prevalence and the pretest likelihood of HSV-2. HSV-2 IgG testing performed using the [employer] HSV-2 IgG assay. Performed at: [address] [id number] Crew Supervisor: Jens Hernandez MD, Phone: [phone] Performed at: [address] [id number] Crew Supervisor: Cornelio Leo PhD, Phone: [phone] Performed By: #### L 7000.7000, L509.8002, L3890.6006, L3400.1610 ####[facility] [address] [place], [address] Hepatitis C,RNA PCR Viral Lo marketing outreach coordinator 10-27-2024 HCV log 10 TNP Normal . [facility] Comment on above: Performed By: #### L 7000.7000, L509.8002, L3890.6006, L3400.1610 ####[facility] [address] [place], [address] HCV QT RNA PCR Not detected Normal . [facility] Comment on above: Performed By: #### L 7000.7000, L509.8002, L3890.6006, L3400.1610 ####[facility] [address] [place], [address] TEST INFO: Comment Normal . [facility] Comment on above: Result Comment: The quantitative range of this assay is 15 IU/mL to 100 million IU/mL. Performed By: #### L 7000.7000, L509.8002, L3890.6006, L3400.1610 ####[facility] [address] [place], [address] HIVon 10-25-2024 HIV Non-Reactive Normal Nonreactive [facility] Comment on above: Result Comment: Non- Reactive Reactive Repeatedly reactive samples must be confirmed according to CDC recommended confirmatory algorithms. The subresults for either HIVAG or AHIV can be used as an aid in the selection of the confirmation algorithm for reactive samples. Send out specimens with Reactive results to [facility] for confirmation. Order the HIV antibody detection and differentiation: lc#[id number] Performed By: #### L 7000.7000, L509.8002, L3890.6006, L3400.1610 ####[facility] [address] [place], [address] No Panel InformationOrdered By: Bety Masters on 10-25-2024 Addendum Document Comment . [facility] Comment on above: The quantitative ran ge of this assay is 15 IU/mL to 100million IU/mL. HIV (1&2) Antibody Non-Reactive Nonreactive [facility] Comment on above: Non-ReactiveReactive Repeatedly reactive samples must be confirmed according to CDC recommended confirmatory algorithms. The subresults for either HIVAG or AHIV can be used as an aid in the selection of the confirmation algorithm for reactive samples.[facility].Order the HIV antibody detection and differentiation: #[id number] Serum herpes simplex virus 2 antibody assay by immunoassay (units/volume)Ordered By: Bety Masters on 10-25-2024 HSV 2 Ab IA Qn (S) Non-Reactive Non Reactive [facility] Comment on above: Please note refere pre interval changeCurrent guidelines and recommendations do not recommendroutine screening for HSV-2 in asymptomatic individuals,including those that are . The detection of HSV-2IgG antibodies in a single sample indicates previousexposure to HSV-2 but does not give information as to thesite of HSV infection or the timing of exposure. Thepredictive value of positive and negative results dependson the population's prevalence and the pretest likelihoodof HSV-2. HSV-2 IgG testing performed using the [employer] HSV-2 IgG assay.Performed at: [facility] [employer] ([employer])[address] [id number] Director: Jens Hernandez MD, Phone: [phone] at: [id number] [place], [place] [id number] Director: Cornelio Leo PhD, Phone: [phone] Serum or plasma hepatitis C virus RNA measurement by probe and target amplification mOrdered By: Bety Masters on 10-25-2024 HCV RNA TOÑO+probe Qn Not detected . [facility] Syphilis Antibodieson 2024 Syphilis Abs Non-Reactive Normal Nonreactive [facility] Comment on above: Performed By: #### L 7000.7000, L509.8002, L3890.6006, L3400.1610 #### [facility] [address] [place], [address] CNOVon 09-30-2024 CNOV Office Visit ([facility]AMPWS) BARB BENNETT ([id number]) 3 F Date Time Provider Department 09/30/24 1:40 PM [facility] During your visit today, we recorded the following information about you: Temperature Pulse Respiration Blood pressure 99.2 degrees 88/minute 16/minute 102/80 Weight Height Last Period 49.4 kg 1.725 m 09/25/24 Shraddha Lopez PA-C 09/30/2024 2:25 PM Signed Chief Complaint Patient presents with: Yearly Exam HPI Barb Bennett is a 19 year old female who presents here today for physical. Annual Wellness Exam: - No significant medical or surgical changes since last year. URI: - Recent mild cold, currently resolving. - Denies current cough, wheezing, or dyspnea. - Attributes symptoms to a combination of allergies and a mild cold. Past medical history, appointments, medications, allergies reviewed. Previous Medical History PAST MEDICAL HISTORY Diagnosis Date NEGATIVE MEDICAL HISTORY Seasonal allergies 09/22/2013 Previous Surgical History PAST SURGICAL HISTORY Procedure Laterality Date NONE Family History FAMILY HISTORY Problem Relation Age of Onset Thyroid Mother lump on thyroid removed other (mvp) Mother 30 mild mitral valve prolapse Heart Maternal Grandfather age 5959 years old Heart Paternal Grandfather NM Hypertension Paternal Grandfather Patient Allergies ALLERGIES Allergen Reactions Seasonal Allergies Other: See Comments Itchy eyes, nasal congestion Current Medications Current Outpatient Medications on File Prior to Visit Medication Sig Brompheniramine-Pseu doeph-DM (BROMFED DM) 2-30-10 mg/5 mL syrup Take 10 mL by mouth four times a day as needed. (Patient not taking: Reported on 09/30/2024) Levonorgestrel-Ethin yl Estrad 0.1mg - 20mcg per tablet Take 1 tablet by mouth every afternoon. fexofenadine (JULITA ALLERGY) 180 mg tablet Take 1 tablet by mouth once daily. fluticasone (FLONASE) 50 mcg/actuation nasal spray Use 1 [place] in each nostril once daily. No current facility-administere d medications on file prior to visit. Social History Social History Tobacco Use Smoking status: Never Smokeless tobacco: Never Vaping Use Vaping status: Never Used Substance Use Topics Alcohol use: No Drug use: No Review of Symptoms REVIEW OF SYSTEMS GENERAL: No weight loss, malaise or fevers HEENT: No changes in hearing or vision, no nose bleeds or other nasal problems NECK: Negative for lumps, goiter, pain and significant neck swelling RESPIRATORY: Negative for cough, hemoptysis, wheezing, COPD, dyspnea or shortness of breath CARDIOVASCULAR: Negative for chest pain, leg swelling, hypertension, CHF or palpitations GI: Negative for abdominal discomfort, blood in stools or black stools, change in bowel habit, heart burn, nausea, vomiting : No history of dysuria, frequency or incontinence SERVICES ACCOUNT MANAGER: Negative for abnormal vaginal bleeding, abnormal vaginal discharge MUSCULOSKELETAL: Negative for joint pain or swelling, back pain or muscle pain SKIN: Negative for lesions, rash, and itching PSYCH: Negative for sleep disturbance, mood disorder and recent psychosocial stressors HEMATOLOGY/LYMPHOLOG Y: Negative for prolonged bleeding, bruising easily or swollen nodes ENDOCRINE: Negative for cold or heat intolerance, polyuria, polydipsia and goiter NEURO: No history of headaches, syncope, paralysis, seizures or tremors SEE HPI EXAM: BP 102/80 (BP Site: Left Arm, BP Position: Sitting, BP Cuff Size: Regular Adult) Pulse 88 Temp 37.3 ?C (99.2 ?F) Resp 16 Ht 172.5 cm (5' 7.91) Wt 49.4 kg (109 lb) LMP 09/25/2024 (Approximate) SpO2 99% BMI 16.62 kg/m? BP 102/80 (BP Site: Left Arm, BP Position: Sitting, BP Cuff Size: Regular Adult) Pulse 88 Temp 37.3 ?C (99.2 ?F) Resp 16 Ht 172.5 cm (5' 7.91) Wt 49.4 kg (109 lb) LMP 09/25/2024 (Approximate) SpO2 99% BMI 16.62 kg/m? General Appearance: Well appearing, alert, in no acute distress, well-hydrated, well nourished.. Skin: Skin color, texture, turgor normal, no suspicious rashes or lesions. Head: Normocephalic, no masses, lesions, tenderness or abnormalities. Eyes: Anicteric sclera. Pupils are equally round and reactive to light. Extraocular movements are intact. . Ears: External ears normal, canals clear, TMs pearly gonzales. Nose/Sinuses: Nares normal, septum midline, mucosa normal, no drainage or sinus tenderness. Oropharynx: Lips, mucosa, and tongue normal, teeth and gums normal, oropharynx normal. Neck: Supple, no adenopathy; thyroid symmetric, normal size, no bruits. Lungs: Lungs clear to auscultation. No wheezing, rhonchi, rales.. Heart: RRR without murmur, gallop, or rubs. No ectopy. Abdomen: Normal abdominal exam, Abdomen soft, non-tender. Bowel sounds normal. No masses, organomegaly. Extremities: No deformities, dl (more content not included)... Normal [facility] CNOVon 05-04-2024 CNOV Office Visit ([facility]) BARB BENNETT ([id number]) 3 F Date Time Provider Department 05/04/24 1:00 PM DAYNA MONTAÑO [facility] During your visit today, we recorded the following information about you: Temperature Pulse Respiration Blood pressure 98.2 degrees 88/minute 18/minute 100/64 Weight 54.5 kg Dayna Montaño PA-C 05/04/2024 2:19 PM Signed This note was created using [employer]. Subjective Barb Bennett is a 18 year old female. HPI Patient presents with a chief complaint of cough and nasal congestion over the past 6 days. She is also had some sinus pressure. Was seen yesterday diagnosed with a viral illness. She started getting right eye redness and drainage over the past day so came back for evaluation. Her left eye is also itchy. She denies wearing contacts. Did not get anything in her eye she can think of. No vomiting. No fever. No home COVID test done. She was rx a nose spray yesterday, she has not used this yet. Review of Systems Constitutional: Negative for fever. HENT: Positive for congestion, postnasal drip, sinus pressure and sinus pain. Negative for ear pain and sore throat. Eyes: Positive for pain, discharge, redness and itching. Negative for photophobia and visual disturbance. Respiratory: Positive for cough. Negative for shortness of breath and wheezing. Cardiovascular: Negative. Gastrointestinal: Negative. Musculoskeletal: Negative. All other systems reviewed and are negative. PAST MEDICAL HISTORY Diagnosis Date NEGATIVE MEDICAL HISTORY Seasonal allergies 09/22/2013 Current Outpatient Medications Medication Sig Dispense Refill oxymetazoline (AFRIN, OXYMETAZOLINE,) 0.05 % nasal spray Use 2 Sprays in each nostril two times a day for 5 days. 22 mL 0 Levonorgestrel-Ethin yl Estrad 0.1mg - 20mcg per tablet Take 1 tablet by mouth every afternoon. fexofenadine (JULITA ALLERGY) 180 mg tablet Take 1 tablet by mouth once daily. fluticasone (FLONASE) 50 mcg/actuation nasal spray Use 1 [place] in each nostril once daily. 1 Bottle 0 amoxicillin-clavulan ate potassium (AUGMENTIN) 875-125 mg per tablet Take 1 tablet by mouth two times a day for 7 days. 14 tablet 0 Brompheniramine-Pseu doeph-DM (BROMFED DM) 2-30-10 mg/5 mL syrup Take 10 mL by mouth four times a day as needed. 200 mL 0 trimethoprim-polymyx in (POLYTRIM) 10,000 unit- 1 mg/mL ophthalmic solution Use 1 Drop in both eyes every 4 hours for 7 days. 10 mL 0 No current facility-administere d medications for this visit. PAST SURGICAL HISTORY Procedure Laterality Date NONE FAMILY HISTORY Problem Relation Age of Onset Thyroid Mother lump on thyroid removed other (mvp) Mother 30 mild mitral valve prolapse Heart Maternal Grandfather age 5959 years old Heart Paternal Grandfather NM Hypertension Paternal Grandfather Social History Tobacco Use Smoking status: Never Smokeless tobacco: Never Vaping Use Vaping status: Never Used Substance Use Topics Alcohol use: No Drug use: No Objective BP 100/64 Pulse 88 Temp 36.8 ?C (98.2 ?F) Resp 18 Wt 54.5 kg (120 lb 2.4 oz) LMP 2023 (Approximate) SpO2 96% BMI 18.42 kg/m? Physical Exam Vitals reviewed. Constitutional: Appearance: Normal appearance. HENT: Head: Normocephalic and atraumatic. Right Ear: Ear canal and external ear normal. Left Ear: Tympanic membrane, ear canal and external ear normal. Ears: Comments: Serous appearing effusion right middle ear Nose: Congestion present. Mouth/Throat: Mouth: Mucous membranes are moist. Pharynx: Oropharynx is clear. Cardiovascular: Rate and Rhythm: Normal rate and regular rhythm. Heart sounds: Normal heart sounds. Pulmonary: Effort: Pulmonary effort is normal. Breath sounds: Normal breath sounds. Musculoskeletal: Cervical back: Neck supple. Skin: General: Skin is warm and dry. Neurological: General: No focal deficit present. Mental Status: She is alert. Assessment and Plan ASSESSMENT/PLAN: 1. Sinus congestion - ICD9: 478.19, ICD10: R09.81 (primary diagnosis) Discussed with patient and mom that this is likely still viral at this point with her other symptoms of cough rhinorrhea, and now conjunctivitis. Discussed I would print her prescription for Augmentin if sinus congestion not improving in 3-4 days. Also given Rx for Polytrim drops. again discussed possible likelihood of viral conjunctivitis as well. 2. Acute conjunctivitis of both eyes, unspecified acute conjunctivitis type - ICD9: 372.00, ICD10: H10.33 - see medication orders - course and contagiousness issues discussed, including hand washing. - Instructed to call if high fever, development of periorbital redness or swelling, eye pain, visual changes, concerns or if symptoms persist. Dayna Montaño PA-C Allergies As of Date: 05/04/2024 Noted Allergy Reaction SEASONAL ALLERGIES 07 (more content not included)... Normal [facility] 05-04-2024 [facility] ([facility]) MOLLY BENNETTIE Denisse ([id number]) 3 F Date Time Provider Department 05/04/24 ROYCE NGUYEN [facility] During your visit today, we recorded the following information about you: Kat Aguilar LPN 05/04/2024 9:26 AM Signed Mother calling for pt. Mother reports [facility]24 and dx with viral infection. No ATB given. Mother calling today because pt is getting worse. Now has blood shut eye and pressure in right eye. Mother requesting ATB. Instructed mother pt will need to be seen in office or can go back to [facility]. Mother will check with pt on what she wants to do. NORI Mcelroy Jeffrey A, MD 05/04/2024 10:27 AM Signed Agree with advise. Allergies As of Date: 05/04/2024 Noted Allergy Reaction SEASONAL ALLERGIES 12/07/2013 14 - Other: See Comments Comments: Itchy eyes, nasal congestion Date Reviewed: 05/03/2024 Reviewed by: Royce Virgen APRN.[facility] - Fully Assessed Reason for Visit: Patient Update [1234] Prescriptions as of 05/04/2024 - oxymetazoline (AFRIN, OXYMETAZOLINE,) 0.05 % nasal spray Use 2 Sprays in each nostril two times a day for 5 days. - Levonorgestrel-Ethin yl Estrad 0.1mg - 20mcg per tablet Take 1 tablet by mouth every afternoon. - fexofenadine (JULITA ALLERGY) 180 mg tablet Take 1 tablet by mouth once daily. - fluticasone (FLONASE) 50 mcg/actuation nasal spray Use 1 [place] in each nostril once daily. Problem List As Of Date 05/04/2024 Noted Resolved Seasonal allergies [J30.2] 09/22/2013 Family history of thyroid disease [Z83.49] 07/21/2023 Family history of mitral valve prolapse [Z82.49]07/21/2023 Encounter Status:Closed by ROYCE NGUYEN on 05/04/24 [facility] SHAYNAOVchristopher 05-03-2024 CNOV Office Visit ([facility]) BARB BENNETT ([id number]) 3 F Date Time Provider Department 05/03/24 10:00 AM ROYCE VIRGEN [facility] During your visit today, we recorded the following information about you: Temperature Pulse Respiration Blood pressure 97.9 degrees 83/minute 18/minute 98/62 Weight 54.9 kg Royce Virgen APRN.[employer] 05/03/2024 10:24 AM Signed Subjective HPI Nontoxic-appearing female presents urgent care chief complaint cough sore throat nasal congestion headache. Duration of symptoms 5 days. Associated symptoms listed above. Most prominent symptom today is sinus pressure. OTC medications none. Sick contacts unknown. Denies any fever body aches chills. Past medical history prescription medications allergies reviewed. .Patient presents with: Cough: Cough, sinus, ST, CYR and congestion x 5 days PAST MEDICAL HISTORY Diagnosis Date NEGATIVE MEDICAL HISTORY Seasonal allergies 09/22/2013 PAST SURGICAL HISTORY Procedure Laterality Date NONE ALLERGIES Seasonal Allergies MEDICATIONS Levonorgestrel-Ethin yl Estrad 0.1mg - 20mcg per tablet Take 1 tablet by mouth every afternoon. fexofenadine (JULITA ALLERGY) 180 mg tablet Take 1 tablet by mouth once daily. fluticasone (FLONASE) 50 mcg/actuation nasal spray Use 1 [place] in each nostril once daily. FAMILY HISTORY Problem Relation Age of Onset Thyroid Mother lump on thyroid removed other (mvp) Mother 30 mild mitral valve prolapse Heart Maternal Grandfather age 5959 years old Heart Paternal Grandfather NM Hypertension Paternal Grandfather Social History Tobacco Use Smoking status: Never Smokeless tobacco: Never Vaping Use Vaping status: Never Used Substance Use Topics Alcohol use: No Drug use: No BP 98/62 Pulse 83 Temp 36.6 ?C (97.9 ?F) (Tympanic) Resp 18 Wt 54.9 kg (121 lb 0.5 oz) LMP 2023 (Approximate) SpO2 97% BMI 18.56 kg/m? Review of Systems Constitutional: Negative for chills, fever and malaise/fatigue. HENT: Positive for congestion, ear pain and sore throat. Negative for ear discharge and sinus pain. Eyes: Negative for blurred vision, pain, discharge and redness. Respiratory: Positive for cough. Negative for hemoptysis, sputum production, shortness of breath, wheezing and stridor. Cardiovascular: Negative for chest pain. Gastrointestinal: Negative for abdominal pain, diarrhea, nausea and vomiting. Musculoskeletal: Negative for myalgias. Skin: Negative for itching and rash. Neurological: Negative for dizziness and headaches. Objective Physical Exam Constitutional: General: She is not in acute distress. Appearance: She is not diaphoretic. HENT: Head: Normocephalic. Jaw: No trismus, tenderness, swelling or pain on movement. Right Ear: Tympanic membrane, ear canal and external ear normal. Left Ear: Tympanic membrane, ear canal and external ear normal. Nose: Congestion present. Mouth/Throat: Mouth: Mucous membranes are moist. Pharynx: Oropharynx is clear. Uvula midline. No pharyngeal swelling, oropharyngeal exudate, posterior oropharyngeal erythema or uvula swelling. Eyes: Conjunctiva/sclera: Conjunctivae normal. Pupils: Pupils are equal, round, and reactive to light. Cardiovascular: Rate and Rhythm: Normal rate and regular rhythm. Heart sounds: Normal heart sounds. Pulmonary: Effort: Pulmonary effort is normal. No tachypnea, accessory muscle usage or respiratory distress. Breath sounds: Normal breath sounds. No stridor. No wheezing, rhonchi or rales. Abdominal: General: There is no distension. Palpations: Abdomen is soft. Tenderness: There is no abdominal tenderness. There is no guarding or rebound. Musculoskeletal: Cervical back: Normal range of motion and neck supple. No edema, erythema, rigidity or tenderness. No pain with movement. Normal range of motion. Lymphadenopathy: Cervical: No cervical adenopathy. Skin: General: Skin is warm and dry. Neurological: Mental Status: She is alert and oriented to person, place, and time. ASSESSMENT/PLAN: 1. Viral illness - ICD9: 079.99, ICD10: B34.9 - Discussed viral etiology and rationale for treatment. - Symptomatic treatment with prn analgesia - Supportive care with fluids and rest Patient was educated on supportive therapies. Patient will follow up with primary care provider as needed. Patient was instructed to immediately proceed to emergency room for any new, worsening, or symptoms lasting longer than anticipated. The patient's clinical presentation is otherwise unremarkable at this time. Based on exam and clinical finding, the patient is stable for discharge. Plan of care was discussed with patient. Patient verbalizes understanding and agrees to plan of care. This note was generated using [employer] software. It may contain errors in wording, punctuation, or spellin (more content not included)... Normal [facility] Lead Web Application Developer Office Visit Reporton 04-29-2024 Lead Web Application Developer Office Visit Report [facility]'s [address], [address] [place] [address] OFFICE VISIT Date of Service: 04/29/24 MR#: [id number] Acct: [id number] Name: BARB BENNETT Rep #: [id number] : 2005 Provider: MARIA DEL ROSARIO Matson Age/Sex: 18/F Location: [facility] [place] Status: Signed Intake Vital Signs 06/12/23 13:03 04/29/24 13:18 Height 5 ft 8 in 5 ft 8 in Weight: 118 lb BMI 17.9 BP 103/67 Intake Visit Reasons: BC REFILL ([facility]) Chief Complaint: bc refill Coating Operator Required: No Is patient in pain?: No Allergies No Known Allergies Allergy (Verified 04/29/24 13:22) Medications ???Medication ???Instructions ???Recorded ???Confirmed ???Type levonorgestrel-ethin yl estradiol 1 tab PO QDAY #28 tabs 04/29/24 04/29/24 Rx 0.1 mg-20 mcg tablet (Aviane) Is last menstrual period known: No Post menopausal: No Patient : No : No Control Method: ocp PFSH Social History current occupation: [employer] student Smoking Status: Never smoker alcohol intake: never substance use type: does not use seatbelt use: always HPI BC REFILL (HOME FROM [facility]) Details: BARB BENNETT is a 18 year old who presents for follow up on OCP. She reports she has been taking this compliantly. She reports she has not missed any pills. Her menses have regulated and she feels her hair loss has improved. She would like to continue on this medication. Denies side effects. She is sexually active. No concerns for STI/Ds or . Female Reproductive History Last Menstrual Period: 03/30/24 Cycle Length: 21-35 Bleeding Duration: 5 Questions: metorrhagia: No, sexually active: Yes, dyspareunia: No and PCB: No ROS Const Constitutional: Reports system reviewed and no additional complaints, except as documented; Denies body ache, chills or fever(s) ENT ENT: Denies dizziness Cardio Card: Denies chest pain, chest pain at rest or palpitations Resp Resp: Reports system reviewed and no additional complaints, except as documented; Denies cough or dyspnea : Reports as per HPI Neuro Neuro: Denies dizziness Psych Psych: Reports system reviewed and no additional complaints, except as documented; Denies anxiety or depression Exam Const General: cooperative and no acute distress Orientation: oriented x3 HENMT Head: normal to inspection and normocephalic Eyes General: appearance normal, both eyes and all related structures Neck Neck: normal visual inspection Resp Effort Inspection: normal respiratory effort Neuro Cognition: normal cognition Speech: speech normal Psych Appearance: grossly normal Mood: congruent mood Affect: normal affect Speech and Movement: speech and movement normal Attitude: cooperative Judgment: judgment good Coding Level of Care Code Established Pt Off vis,est,level 3 Patient Type Established Diagnoses Hair loss L65.9 Irregular menstrual cycle N92.6 Assessment and Plan Assessment and Plan (1) Hair loss: Plan: improved since starting this OCP. (2) Irregular menstrual cycle: Status: Acute Plan: Doing well with this. Continue; refills sent. Advise safe sex practices. Follow up 1 year for annual exam. Call office sooner with questions or concerns. Concerning symptoms advised that would prompt a phone call for evaluation. Medications: Refilled levonorgestrel-ethin yl estrad 0.1-20 mg-mcg (Aviane) 1 TAB PO QDAY 28 tabs 12RF 04/29/24 1342 Date Beth Longignmiguel Signature: Date (if applicable) CC: [facility] 02-24-2024 [facility] Telephone (UCWSTR) BARB BENNETT ([id number]) 3 F Date Time Provider Department 02/24/24 MISSY SHAIKH [facility] During your visit today, we recorded the following information about you: Missy Shaikh PA 02/24/2024 7:09 AM Signed Negative COVID flu RSV Cony Mora MA 02/24/2024 7:24 AM Signed Patient given results and verbalized understanding of instructions given. Cony Mora MA Allergies As of Date: 02/24/2024 Noted Allergy Reaction SEASONAL ALLERGIES 12/07/2013 14 - Other: See Comments Comments: Itchy eyes, nasal congestion Date Reviewed: 02/23/2024 Reviewed by: Smitha Valles MA - Fully Assessed Reason for Visit: Results [95] Prescriptions as of 02/24/2024 - Levonorgestrel-Ethin yl Estrad 0.1mg - 20mcg per tablet Take 1 tablet by mouth every afternoon. - fexofenadine (JULITA ALLERGY) 180 mg tablet Take 1 tablet by mouth once daily. - fluticasone (FLONASE) 50 mcg/actuation nasal spray Use 1 [place] in each nostril once daily. Problem List As Of Date 02/24/2024 Noted Resolved Seasonal allergies [J30.2] 09/22/2013 Family history of thyroid disease [Z83.49] 07/21/2023 Family history of mitral valve prolapse [Z82.49]07/21/2023 Encounter Status:Closed by CONY MORA on 02/24/24 [facility] CNOVon 02-23-2024 CNOV Office Visit (UCWSTR) BARB BENNETT ([id number]) 3 F Date Time Provider Department 02/23/24 12:45 PM LEVI LOPES [facility] During your visit today, we recorded the following information about you: Temperature Pulse Respiration Blood pressure 98.6 degrees 100/minute 18/minute 100/58 Weight 54.2 kg Levi Lopes MD 02/23/2024 12:44 PM Signed Patient presents with: Sore Throat: Fatigue, CYR, cough, congestion x 2 days HPI: Feeling sick starting 2 days ago. Her roommate had extended strep illness this fall. Positive symptoms: Cough, Sore throat, Malaise, Fatigue, Headache, Nasal Congestion, Rhinorrhea, Post nasal drainage, Feverish/sweats, Diarrhea, Negative symptoms: Shortness of breath, Vomiting, OTC: Tylenol MEDICATIONS: Current Outpatient Medications Medication Sig Levonorgestrel-Ethin yl Estrad 0.1mg - 20mcg per tablet Take 1 tablet by mouth every afternoon. fexofenadine (JULITA ALLERGY) 180 mg tablet Take 1 tablet by mouth once daily. fluticasone (FLONASE) 50 mcg/actuation nasal spray Use 1 [place] in each nostril once daily. No current facility-administere d medications for this visit. ALLERGIES: ALLERGIES Allergen Reactions Seasonal Allergies Other: See Comments Itchy eyes, nasal congestion VITALS: BP 100/58 Pulse 100 Temp 37 ?C (98.6 ?F) Resp 18 Wt 54.2 kg (119 lb 7.8 oz) LMP 2023 (Approximate) SpO2 97% BMI 18.32 kg/m? PHYSICAL EXAM: GEN: mildly ill appearing HEENT: PERRL, EOMI, conjunctiva clear Ears: canals clear. TMs without erythema, bulge, or effusion Sinuses: non-tender frontal sinus, non-tender maxillary sinuses Throat: moist mucous membranes, pharyngeal erythema, no exudate Neck: supple, no thyromegaly, borderline anterior lymphadenopathy HEART: regular rate and rhythm, no murmurs LUNGS: clear to auscultation, no wheezes or crackles, no increased WOB ASSESSMENT/PLAN: 1. Sore throat - ICD9: 462, ICD10: J02.9 (primary diagnosis) 2. URI, acute - ICD9: 465.9, ICD10: J06.9 - STREP A MOLECULAR (POC) - negative - COVID AND INFLUENZA A/B AND RSV PCR, ROUTINE - suspect viral URI - Discussed supportive care treatment with rest, cold medicine, and analgesia. Levi Lopes MD Allergies As of Date: 02/23/2024 Noted Allergy Reaction SEASONAL ALLERGIES 12/07/2013 14 - Other: See Comments Comments: Itchy eyes, nasal congestion Date Reviewed: 02/23/2024 Reviewed by: Smitha Valles MA - Fully Assessed Reason for Visit: Sore Throat [200] Cmt: Fatigue, CYR, cough, congestion x 2 days Primary Visit Diagnosis:Sore throat [J02.9] Other Visit Diagnosis:URI, acute [J06.9] Order(s):STREP A MOLECULAR (POC) [0887785] Order #: [id number]. #:[id number] COVID AND INFLUENZA A/B AND RSV PCR, ROUTINE [SQCVFLRS] Order #: [id number]. #:[id number] Prescriptions as of 02/23/2024 - Levonorgestrel-Ethin yl Estrad 0.1mg - 20mcg per tablet Take 1 tablet by mouth every afternoon. - fexofenadine (JULITA ALLERGY) 180 mg tablet Take 1 tablet by mouth once daily. - fluticasone (FLONASE) 50 mcg/actuation nasal spray Use 1 [place] in each nostril once daily. Problem List As Of Date 02/23/2024 Noted Resolved Seasonal allergies [J30.2] 09/22/2013 Family history of thyroid disease [Z83.49] 07/21/2023 Family history of mitral valve prolapse [Z82.49]07/21/2023 Level of Service: OFFICE/OUTPATIENT ESTABLISHED LOW [facility] 20 MIN [88891] Encounter Status:Closed by LEVI LOPES on 02/23/24 Normal [facility] COVID AND INFLUENZA A/B AND RSV PCR, ROUTINEon 02-23-2024 SARS-CoV-2 (COVID-19) RNA TOÑO+probe Ql (Unsp spec) SARS-COV-2 (AGENT OF COVID-19) RNA: Not detected INFLUENZA A RNA: Not detected INFLUENZA B RNA: Not detected RESPIRATORY SYNCYTIAL VIRUS (RSV) RNA: Not detected Normal [facility] Comment on above: Performed By: #### C VFLRS #### [facility] CLIA [id number] [address] [place] [address] [place] STREP A MOLECULAR (POC)on Procedural Control Valid [facility] Strep A (POCT) Negative Negative [facility] Medicine Physician Shante nation Noteon 08-22-2023 [facility] Medicine Physician Progress Note VINODBARB Hammond :2005 Registration Date:08/22/2023 Chief Complaint continued illness - requests antibiotic History of Present Illness Pt presents with continued symptoms of sinus drainage, she was seen 10 days ago and had symptoms for a week before that. She has some sinus pressure, she will lose her voice occasionally, her cough is occasionally productive for yellowish mucous. Has some seasonal allergies and is taking julita. Has taken flonase, elderberry cough syrup, and Robafen DM. Review of Systems See HPI Physical Exam Vitals & Measurements Systolic Blood Pressure: 102 mmHg (08/22/23 11:21:00) Diastolic Blood Pressure: 68 mmHg (08/22/23 11:21:00) Temperature Oral: 36.7 degC (08/22/23 11:21:00) SpO2: 99 % (08/22/23 11:21:00) Peripheral Pulse Rate: 91 bpm (08/22/23 11:21:00) Depression Screening Scores No Depression Screening data available for this encounter. Fall Risk Assessment No Falls Risk Assessment data available for this encounter. Constitutional: Awake and oriented X3. Patient is cooperative. Eyes: Conjunctivae clear. ENMT: External ears WNL, auditory canals normal. Ears with pearly clemente tympanic membranes bilaterally. Throat pink with no tonsillar swelling. Considerable nasal congestion, No tenderness to percussion frontal or maxillary sinuses. Respiratory: Lungs sounds clear bilaterally. Symmetrical chest expansion Cardiovascular: Heart rate regular, S1 and S2 is normal. No extra sounds. No heart murmur appreciated. Lymphatic: No palpable or visible cervical lymphadenopathy. Neuro: Mood is normal. Medication Reconciliation What How Much When Why Instructions New amoxicillin = Amoxil (amoxicillin 875 mg oral tablet) 1 Tabs Oral TWICE A DAY Duration: 7 Days Unchanged fexofenadine (Julita Allergy) 60 Milligram Oral DAILY Unchanged fluticasone nasal (Flonase 50 mcg/ inh nasal spray) 1 Sprays Nasal DAILY as needed for Congestion Nasal congestion Assessment/Plan This Visit Diagnosis 1. Sinusitis J32.9 Continue fluids, flonase as directed. Follow up as needed. Ordered: AMB Office/Outpt Est Pt Low MDM / 20 min [id number], 08/22/2023 11:28:00 EDT, Sinusitis Orders: amoxicillin = Amoxil(amoxicillin 875 mg oral tablet), 875 mg= 1 tabs, ORAL, BID Procedure/Surgical History No qualifying data available. Medications amoxicillin = Amoxil(amoxicillin 875 mg oral tablet), 875 mg= 1 tabs, ORAL, BID fexofenadine(Julita Allergy), 60 mg, ORAL, DAILY fluticasone nasal(Flonase 50 mcg/inh nasal spray), 50 mcg= 1 sprays, Nasal, DAILY, PRN Allergies No Known Medication Allergies Care Team Attending Physician GRISEL JOVEL CNP [phone] . Health Maintenance Pending (in the next year) There are no current recommendations pending Satisfied (in the past 1 year) There are no satisfied recommendations within the defined date range Normal [facility] Ambulatory Clinical Summaryo n 08-22-2023 Ambulatory Clinical Summary BARB BENNETT :2005 Registration Date:08/22/2023 Ambulatory Visit Instructions Your Diagnosis Sinusitis Your Care Team Attending Physician - GRISEL JOVEL CNP Discharge Vitals Temperature (Oral) 98.1 ?F (36.7 ?C) Heart Rate (Peripheral) 91 Blood Pressure 102/68 Systolic Blood Pressure: 102 mmHg (08/22/23 11:21:00) Diastolic Blood Pressure: 68 mmHg (08/22/23 11:21:00) Temperature Oral: 36.7 degC (08/22/23 11:21:00) SpO2: 99 % (08/22/23 11:21:00) Peripheral Pulse Rate: 91 bpm (08/22/23 11:21:00) What to do next Scheduled Follow-Up Appointments No results Medications What How Much When Why Instructions New amoxicillin = Amoxil (amoxicillin 875 mg oral tablet) 1 Tabs Oral TWICE A DAY Duration: 7 Days Unchanged fexofenadine (Julita Allergy) 60 Milligram Oral DAILY Unchanged fluticasone nasal (Flonase 50 mcg/ inh nasal spray) 1 Sprays Nasal DAILY as needed for Congestion Nasal congestion Allergies No Known Medication Allergies Common Emergency Awareness Tips IS IT A STROKE? Act FAST and Check for these signs: FACE Does the face look uneven? ARM Does one arm drift down? SPEECH Does their speech sound strange? TIME Call at any sign of stroke Heart Attack Signs Chest discomfort: Most heart attacks involve discomfort in the center of the chest and lasts more than a few minutes, or goes away and comes back. It can feel like uncomfortable pressure, squeezing, fullness or pain. Discomfort in upper body: Symptoms can include pain or discomfort in one or both arms, back, neck, jaw or stomach. Shortness of breath: With or without discomfort. Other signs: Breaking out in a cold sweat, nausea, or lightheaded. Remember, MINUTES DO MATTER. If you experience any of these heart attack warning signs, call -- to get immediate medical attention! Normal [facility] Ambulatory Vitals Height Ari ght-Texton 08-22-2023 Ambulatory Vitals Height Weight-Text Ambulatory Vitals Height Weight Entered On: 08/22/2023 11:22 EDT Performed On: 08/22/2023 11:21 EDT by GRISEL JOVEL CNP Vitals/Ht/Wt Temperature Oral : 36.7 degC(Converted to: 98.1 degF) Pulse Rate : 91 bpm Systolic Blood Pressure : 102 mmHg Diastolic Blood Pressure : 68 mmHg SpO2 : 99 % GRISEL JOVEL CNP - 08/22/2023 11:21 EDT Normal [facility] Medicine Physician P chapis Noteon 08-11-2023 [facility] Medicine Physician Progress Note BARB BENNETT :2005 Registration Date:08/11/2023 Chief Complaint Long standing cold symptoms History of Present Illness Pt presents with a month of post nasal drip, cough, congestion at night. Denies fevers, ear pain, has an occ scratchy throat occasionally. Has some sick contacts. Taking elderberry cough syrup, hydrating well. States the mucous is the main complaint. Admits to seasonal allergies, sees ENT at home, takes OTC Julita later in the spring and through the summer. Woke yesterday with reddened eyes and slight crusting. No itching or irritation of eyes. Review of Systems See HPI Physical Exam Vitals & Measurements Systolic Blood Pressure: 104 mmHg (08/11/23 11:10:00) Diastolic Blood Pressure: 64 mmHg (08/11/23 11:10:00) Temperature Oral: 36.8 degC (08/11/23 11:10:00) SpO2: 99 % (08/11/23 11:10:00) Peripheral Pulse Rate: 78 bpm (08/11/23 11:10:00) Depression Screening Scores No Depression Screening data available for this encounter. Fall Risk Assessment No Falls Risk Assessment data available for this encounter. Constitutional: Awake and oriented X3. Patient is cooperative. Eyes: Conjunctivae reddened bilaterally with scant crusting noted. ENMT: External ears WNL, auditory canals normal. Ears with pearly clemente tympanic membranes bilaterally. Throat pink with no tonsillar swelling. Nasal congestion present, no tenderness to percussion in frontal or maxillary sinuses. Respiratory: Lungs sounds clear bilaterally. Symmetrical chest expansion Cardiovascular: Heart rate regular, S1 and S2 is normal. No extra sounds. No heart murmur appreciated. Lymphatic: No palpable or visible cervical lymphadenopathy. Neuro: Mood is normal. Medication Reconciliation What How Much When Why Instructions New fluticasone nasal (Flonase 50 mcg/ inh nasal spray) 1 Sprays Nasal DAILY as needed for Congestion Nasal congestion Assessment/Plan This Visit Diagnosis 1. Viral conjunctivitis B30.9 May use artificial tears, good handwashing. Change pillowcase when symptoms begin to resolve and change mascara. Ordered: AMB Office/Outpt Est Pt Low MDM / 20 min [id number], 08/11/2023 11:25:00 EDT, Viral conjunctivitis / Nasal congestion 2. Nasal congestion R09.81 Increase fluids. Mucinex 10-20ml every 4 hours as needed for congestion. Follow up as needed. Ordered: fluticasone nasal(Flonase 50 mcg/inh nasal spray), 50 mcg= 1 sprays, Nasal, DAILY, PRN AMB Office/Outpt Est Pt Low MDM / 20 min [id number], 08/11/2023 11:25:00 EDT, Viral conjunctivitis / Nasal congestion Procedure/Surgical History No qualifying data available. Medications fluticasone nasal(Flonase 50 mcg/inh nasal spray), 50 mcg= 1 sprays, Nasal, DAILY, PRN Allergies No Known Medication Allergies Care Team Attending Physician GRISEL JOVEL CNP [phone] . Health Maintenance Pending (in the next year) There are no current recommendations pending Satisfied (in the past 1 year) There are no satisfied recommendations within the defined date range Normal [facility] Ambulatory Clinical Summaryo n 08-11-2023 Ambulatory Clinical Summary BARB BENNETT :2005 Registration Date:08/11/2023 Ambulatory Visit Instructions Your Diagnosis Viral conjunctivitis Nasal congestion Your Care Team Attending Physician - GRISEL JOVEL CNP Discharge Vitals Temperature (Oral) 98.2 ?F (36.8 ?C) Heart Rate (Peripheral) 78 Blood Pressure 104/64 Systolic Blood Pressure: 104 mmHg (08/11/23 11:10:00) Diastolic Blood Pressure: 64 mmHg (08/11/23 11:10:00) Temperature Oral: 36.8 degC (08/11/23 11:10:00) SpO2: 99 % (08/11/23 11:10:00) Peripheral Pulse Rate: 78 bpm (08/11/23 11:10:00) What to do next Scheduled Follow-Up Appointments No results Medications What How Much When Why Instructions New fluticasone nasal (Flonase 50 mcg/ inh nasal spray) 1 Sprays Nasal DAILY as needed for Congestion Nasal congestion Allergies No Known Medication Allergies Common Emergency Awareness Tips IS IT A STROKE? Act FAST and Check for these signs: FACE Does the face look uneven? ARM Does one arm drift down? SPEECH Does their speech sound strange? TIME Call at any sign of stroke Heart Attack Signs Chest discomfort: Most heart attacks involve discomfort in the center of the chest and lasts more than a few minutes, or goes away and comes back. It can feel like uncomfortable pressure, squeezing, fullness or pain. Discomfort in upper body: Symptoms can include pain or discomfort in one or both arms, back, neck, jaw or stomach. Shortness of breath: With or without discomfort. Other signs: Breaking out in a cold sweat, nausea, or lightheaded. Remember, MINUTES DO MATTER. If you experience any of these heart attack warning signs, call to get immediate medical attention! Normal [facility] Ambulatory Vitals Height Ari ght-Texton 08-11-2023 Ambulatory Vitals Height Weight-Text Ambulatory Vitals Height Weight Entered On: 08/11/2023 11:10 EDT Performed On: 08/11/2023 11:10 EDT by GRISEL JOVEL CNP Vitalaugie/Ht/Wt Temperature Oral : 36.8 degC(Converted to: 98.2 degF) Pulse Rate : 78 bpm Systolic Blood Pressure : 104 mmHg Diastolic Blood Pressure : 64 mmHg SpO2 : 99 % GRISEL JOVEL CNP - 08/11/2023 11:10 EDT Normal [facility] Absolute lymphocyte countOrd ered By: Bety Masters on 06-12-2023 Lymphocytes Auto (Unsp spec) [#/Vol] 2.10 10*3/uL 0.83-4.51 [facility] Automated lymphocyte count a s percentage of total leukocytesOrdered By: Bety Masters on 06-12-2023 Lymphocytes/100 WBC Auto (Unsp spec) 41.3 % 25-45 [facility] Basophil percentageOrdered B y: Bety Masters on 06-12-2023 Basophils/100 WBC (Bld) 1.0 % 0-1 [facility] Eosinophils/100 WBC (Bld) 2.4 % 0-3 [facility] Hemoglobin (Bld) [Mass/Vol] 13.1 g/dL 12.0-15.0 [facility] Monocytes/100 WBC (Bld) 6.3 % 3-6 [facility] Neutrophils (Bld) [#/Vol] 2.5 10*3/uL 2.0-7.7 [facility] Neutrophils/100 WBC (Bld) 48.8 % 34-64 [facility] WBC (Bld) [#/Vol] 5.1 10*3/uL 4.5-13.[address] [facility] Determination of erythrocyte mean corpuscular volume (MCV)Ordered By: Bety Masters on 06-12-2023 MCV (RBC) [Entitic vol] 93.5 fL 78-96 [facility] Erythrocyte distribution wid th ratioOrdered By: Bety Masters on 06-12-2023 Erythrocyte distribution width (RBC) [Ratio] 13.1 % 11.6-14.6 [facility] Erythrocyte distribution wid th standard deviationOrdered By: Bety Masters on 06-12-2023 Erythrocyte distribution width (RBC) [Entitic vol] 44.7 fL 35.1-43.9 [facility] Hematocrit Auto (Bld) [Volum e fraction]Ordered By: Bety Masters on 06-12-2023 Hematocrit (Bld) [Volume fraction] 41.4 % 37-46 [facility] Immature granulocytes/100 WB C Auto (Bld)Ordered By: Bety Masters on 06-12-2023 Immature granulocytes/100 WBC (Bld) 0.200 % 0.0-0.9 [facility] Comment on above: IG% - Immature Granu locytes (promyelocytes, myelocytes and metamyelocytes) > 1% indicates that a LEFT SHIFT is Present. Laboratory - Hematology and Cell countsOrdered By: Bety Masters on 06-12-2023 MCH (RBC) [Entitic mass] 29.6 pg 25.0-35.0 [facility] MCHC (RBC) [Mass/Vol] 31.6 g/dL 32-36 [facility] Nucleated RBC/100 WBC (Bld) [Ratio] 0 % 0-5 [facility] Platelets (Bld) [#/Vol] 244 10*3/uL 150-450 [facility] No Panel InformationOrdered By: Bety Masters on 06-12-2023 Vitamin D 25-Hydroxy 33.8 ng/mL [facility] Comment on above: Vitamin D 25(OH) Sta tus Range Deficiency <20 ng/mL (50nmol/L) Insufficiency 20 - 30 ng/mL (50 - 75 nmol/L) Sufficiency 30 - 100 ng/mL (75 - 250 nmol/L) Toxicity >100 ng/mL (>250 nmol/L) Platelet mean volume Ramin-Ec ker (Bld) [Entitic vol]Ordered By: Bety Masters on 06-12-2023 Platelet mean volume (Bld) [Entitic vol] 10.5 fL 6.2-12.0 [facility] RBC Auto (Bld) [#/Vol]Ordere d By: Bety Masters on 06-12-2023 RBC (Bld) [#/Vol] 4.43 10*6/uL 4.1-4.8 [facility] Serum or plasma thyroid stim ulating hormone (TSH) measurement (units/volume)Ordered By: Bety Masters on 06-12-2023 TSH Qn 0.71 uIU/mL 0.358-3.74 [facility] Serum or plasma thyroperoxid ase antibody assay (units/volume)Ordered By: Bety Masters on 06-12-2023 TPO Ab Qn 10 [IU]/mL 0-26 [facility] Comment on above: Performed at: [address] [id number] Director: Cornelio Leo PhD, Phone: [phone] Thin prep Papanicolaou smear with manual screeningOrdered By: Bety Masters on 06-12-2023 Thin prep Papanicolaou smear with manual screening 0.91 ng/dL 0.76-1.46 [facility] XR Chest PA and Lateralon IMPRESSION: No focal airspace opacity. Crew Supervisor: GAGE Transcribe Date/Time: Mar 26 2021 12:26P Dictated by : TOYA COATES DO This examination was interpreted and the report reviewed and electronically signed by: TOYA COATES DO on Mar 26 2021 12:27PM [facility] DIVISION OF RADIOLOGY * * *Final Report* * * DATE OF EXAM: Mar 26 2021 12:23PM WOX [id number] - XR CHEST 2V FRONTAL/LAT / PROCEDURE REASON: Cough * * * * Physician Interpretation * * * * EXAMINATION: CHEST RADIOGRAPH (2 VIEW FRONTAL & LATERAL) CLINICAL HISTORY: Cough MQ: [id number] EXAM DATE/TIME: 03/26/2021 12:23 PM COMPARISON: No relevant prior studies available. RESULT: Lines, tubes, and devices: None. Lungs and pleura: No consolidation. No pleural effusion. No pneumothorax. Cardiomediastinal silhouette: Normal cardiomediastinal silhouette. Bones and soft tissues: There is a mildly exaggerated thoracic kyphosis. DIVISION OF RADIOLOGY Provider, [facility] [place] - 03/26/2021 * * *Final Report* * * DATE OF EXAM: Mar 26 2021 12:23PM WOX [id number] - XR CHEST 2V FRONTAL/LAT / PROCEDURE REASON: Cough * * * * Physician Interpretation * * * * EXAMINATION: CHEST RADIOGRAPH (2 VIEW FRONTAL & LATERAL) CLINICAL HISTORY: Cough MQ: [id number] EXAM DATE/TIME: 03/26/2021 12:23 PM COMPARISON: No relevant prior studies available. RESULT: Lines, tubes, and devices: None. Lungs and pleura: No consolidation. No pleural effusion. No pneumothorax. Cardiomediastinal silhouette: Normal cardiomediastinal silhouette. Bones and soft tissues: There is a mildly exaggerated thoracic kyphosis. IMPRESSION IMPRESSION: No focal airspace opacity. Crew Supervisor: GAGE Transcribe Date/Time: Mar 26 2021 12:26P Dictated by : TOYA COATES DO This examination was interpreted and the report reviewed and electronically signed by: TOYA COATES DO on Mar 26 2021 12:27PM [facility] Radiology Study observation (narrative) [facility] XR Chest PA and LateralOrder ed By: Ccf Provider on 03-26-2021 [facility] Vital Signs Date Time Vital Sign Value Performing Clinician Facility 01-26-2025 11:38-0400 Body height 172.72 cm No Primary Care Physician [facility] 01-26-2025 11:35-0400 Body mass index (BMI) [Ratio] 17.2 kg/m2 No Primary Care Physician [facility] 01-26-2025 11:35-0400 Body weight 51.25 kg No Primary Care Physician [facility] 01-26-2025 11:35-0400 Diastolic blood pressure 71 mm[Hg] No Primary Care Physician [facility] 01-26-2025 11:35-0400 Systolic blood pressure 115 mm[Hg] No Primary Care Physician [facility] 10-29-2024 15:49-0400 Body height 172.72 cm Bety Masters REVENUE OFFICER-C Work Phone: [facility] 10-29-2024 15:49-0400 Body mass index (BMI) [Ratio] 16.9 kg/m2 Bety Masters REVENUE OFFICER-C Work Phone: [facility] 10-29-2024 15:49-0400 Body weight 50.51 kg Bety Masters REVENUE OFFICER-C Work Phone: [facility] 10-29-2024 15:49-0400 Diastolic blood pressure 75 mm[Hg] Bety Hinsons REVENUE OFFICER-C Work Phone: [facility] 10-29-2024 15:49-0400 Systolic blood pressure 115 mm[Hg] Bety Hinsons REVENUE OFFICER-C Work Phone: [facility] 09-30-2024 14:01-0400 Heart rate 88 /min Shraddha Lopez PA-C Work Phone: [facility] 09-30-2024 13:44-0400 Body height 172.5 cm Shraddha Lopez PA-C Work Phone: [facility] 09-30-2024 13:44-0400 Body mass index (BMI) [Ratio] 16.62 kg/m2 Shraddha Lopez PA-C Work Phone: [facility] 09-30-2024 13:44-0400 Body temperature 99.19 [degF] Shraddha Lopez PA-C Work Phone: [facility] 09-30-2024 13:44-0400 Body weight 49.44 kg Shraddha Lopez PA-C Work Phone: [facility] 09-30-2024 13:44-0400 Diastolic blood pressure 80 mm[Hg] Shraddha Lopez PA-C Work Phone: [facility] 09-30-2024 13:44-0400 Respiratory rate 16 /min Shraddha Lopez PA-C Work Phone: [facility] 09-30-2024 13:44-0400 SaO2% (BldA) [Mass fraction] 99 % Shraddha Lopez PA-C Work Phone: [facility] 09-30-2024 13:44-0400 Systolic blood pressure 102 mm[Hg] Shraddha Lopez PA-C Work Phone: [facility] 05-04-2024 12:54-0500 Body mass index (BMI) [Ratio] 18.42 kg/m2 Dayna Montaño PA-C Work Phone: [facility] 05-04-2024 12:54-0500 Body temperature 98.2 [degF] Dayna Athy PA-C Work Phone: [facility] 05-04-2024 12:54-0500 Body weight 54.5 kg Dayna Athy PA-C Work Phone: [facility] 05-04-2024 12:54-0500 Diastolic blood pressure 64 mm[Hg] Dayna Athy PA-C Work Phone: [facility] 05-04-2024 12:54-0500 Heart rate 88 /min Dayna Athy PA-C Work Phone: [facility] 05-04-2024 12:54-0500 Respiratory rate 18 /min Dayna Athy PA-C Work Phone: [facility] 05-04-2024 12:54-0500 SaO2% (BldA) [Mass fraction] 96 % Dayna Athy PA-C Work Phone: [facility] 05-04-2024 12:54-0500 Systolic blood pressure 100 mm[Hg] Dayna Athy PA-C Work Phone: [facility] 05-03-2024 10:06-0500 Body mass index (BMI) [Ratio] 18.56 kg/m2 Royce Virgen REFERRAL NURSE.NUT CHOPPER Work Phone: [facility] 05-03-2024 10:06-0500 Body temperature 97.9 [degF] Royce Virgen REFERRAL NURSE.NUT CHOPPER Work Phone: [facility] 05-03-2024 10:06-0500 Body weight 54.9 kg Royce Virgen REFERRAL NURSE.NUT CHOPPER Work Phone: [facility] 05-03-2024 10:06-0500 Diastolic blood pressure 62 mm[Hg] Royce Virgen REFERRAL NURSE.NUT CHOPPER Work Phone: [facility] 05-03-2024 10:06-0500 Heart rate 83 /min Royce Pendlebury REFERRAL NURSE.NUT CHOPPER Work Phone: [facility] 05-03-2024 10:06-0500 Respiratory rate 18 /min Royce Virgen REFERRAL NURSE.NUT CHOPPER Work Phone: [facility] 05-03-2024 10:06-0500 SaO2% (BldA) [Mass fraction] 97 % Royce Virgen REFERRAL NURSE.NUT CHOPPER Work Phone: [facility] 05-03-2024 10:06-0500 Systolic blood pressure 98 mm[Hg] Royce Virgen REFERRAL NURSE.NUT CHOPPER Work Phone: [facility] 02-23-2024 12:24-0400 Body mass index (BMI) [Ratio] 18.32 kg/m2 Levi Lopes MD Work Phone: [facility] 02-23-2024 12:24-0400 Body temperature 98.6 [degF] Levi Lopes MD Work Phone: [facility] 02-23-2024 12:24-0400 Body weight 54.2 kg Levi Lopes MD Work Phone: [facility] 02-23-2024 12:24-0400 Diastolic blood pressure 58 mm[Hg] eLvi Lopes MD Work Phone: [facility] 02-23-2024 12:24-0400 Heart rate 100 /min Levi Lopes MD Work Phone: [facility] 02-23-2024 12:24-0400 Respiratory rate 18 /min Levi Lopes MD Work Phone: [facility] 02-23-2024 12:24-0400 SaO2% (BldA) [Mass fraction] 97 % Levi Lopes MD Work Phone: [facility] 02-23-2024 12:24-0400 Systolic blood pressure 100 mm[Hg] Levi Lopes MD Work Phone: [facility] 07-21-2023 11:35-0500 Body height 172 cm Shraddha Lopez PA-C Work Phone: [facility] 07-21-2023 11:35-0500 Body temperature 98.49 [degF] Shraddha Lopez PA-C Work Phone: [facility] 07-21-2023 11:35-0500 Body weight 52.62 kg Shraddha Lopez PA-C Work Phone: [facility] 07-21-2023 11:35-0500 Diastolic blood pressure 70 mm[Hg] Shraddha Lopez PA-C Work Phone: [facility] 07-21-2023 11:35-0500 Heart rate 80 /min Shraddha Lopez PA-C Work Phone: [facility] 07-21-2023 11:35-0500 Respiratory rate 14 /min Shraddha Lopez PA-C Work Phone: [facility] 07-21-2023 11:35-0500 Systolic blood pressure 100 mm[Hg] Shraddha Lopez PA-C Work Phone: [facility] 06-12-2023 13:03-0500 Body height 172.72 cm DO Carrie Julissa Work Phone: [facility] 06-12-2023 12:58-0500 Body mass index (BMI) [Percentile] Per age and sex 4.1 % DO Carrie Julissa Work Phone: [facility] 06-12-2023 12:58-0500 Body mass index (BMI) [Ratio] 17.6 kg/m2 DO Carrie Julissa Work Phone: [facility] 06-12-2023 12:58-0500 Body weight 52.61 kg DO Carrie Julissa Work Phone: [facility] 06-12-2023 12:58-0500 Diastolic blood pressure 60 mm[Hg] DO Carrie Julissa Work Phone: [facility] 06-12-2023 12:58-0500 Systolic blood pressure 106 mm[Hg] DO Carrie Julissa Work Phone: [facility] 04-15-2022 15:58-0500 Body height 172.[address] Whitley Quan Work Phone: [facility] Work Phone: 04-15-2022 15:49-0500 Body mass index (BMI) [Percentile] Per age and sex 1.6 % Dr. Whitley Quan Work Phone: [facility] Work Phone: 04-15-2022 15:49-0500 Body mass index (BMI) [Ratio] 16.7 kg/m2 Dr. Whitley Quan Work Phone: [facility] Work Phone: 04-15-2022 15:49-0500 Body weight [address] Whitley Quan Work Phone: [facility] Work Phone: 04-15-2022 15:49-0500 Diastolic blood pressure 68 mm[Hg] Dr. Whitley Quan Work Phone: [facility] Work Phone: 04-15-2022 15:49-0500 Systolic blood pressure 110 mm[Hg] Dr. Whitley Quan Work Phone: [facility] Work Phone: 03-07-2022 11:04-0400 Body temperature 98.49 [degF] Royce Virgen APRN.NUT CHOPPER Work Phone: [facility] 03-07-2022 11:04-0400 Body weight 49.8 kg Royce Virgen REFERRAL NURSE.NUT CHOPPER Work Phone: [facility] 03-07-2022 11:04-0400 Heart rate 92 /min Royce Virgen REFERRAL NURSE.NUT CHOPPER Work Phone: [facility] 03-07-2022 11:04-0400 Respiratory rate 18 /min Royce Virgen REFERRAL NURSE.NUT CHOPPER Work Phone: [facility] 03-07-2022 11:04-0400 SaO2% (BldA) [Mass fraction] 99 % Royce Virgen REFERRAL NURSE.NUT CHOPPER Work Phone: [facility] Encounters Encounter Date Encounter Type Care Provider Facility Start: 01-26-2025 End: 01-26-2025 Patient encounter procedure Bety Masters REVENUE OFFICER-C [facility] Work Phone: Start: 01-26-2025 End: 01-26-2025 ambulatory No Primary Care Physician -[facility] Start: 01-26-2025 End: 01-26-2025 ambulatory Bety Doniphan REVENUE OFFICER Facility:[facility] Start: 10-29-2024 Patient encounter procedure No Primary Care Physician [facility] Start: 10-29-2024 End: 10-29-2024 ambulatory No Primary Care Physician [facility] Work Phone: Start: 10-29-2024 End: 10-29-2024 Patient encounter procedure Beth Case REVENUE OFFICER-C -[facility] Work Phone: Start: 10-29-2024 End: 10-29-2024 Patient encounter procedure Beth Case REVENUE OFFICER-C -[facility] Work Phone: Start: 10-29-2024 End: 10-29-2024 ambulatory Beth Case [facility] Work Phone: Start: 10-29-2024 End: 10-29-2024 ambulatory Beth Case Facility:[facility] Start: 10-25-2024 End: 10-25-2024 ambulatory Bety Hinsons REVENUE OFFICER-C Work Phone: [facility] Work Phone: Start: 10-25-2024 End: 10-25-2024 Patient encounter procedure Bety Masters REVENUE OFFICER-C -Lab [facility] Start: 10-25-2024 End: 10-25-2024 ambulatory Bety Sonam REVENUE OFFICER Facility:[facility] Start: 09-30-2024 Encounter for genera l adult medical examination without abnormal findings SHRADDHA LOPEZ [facility] Start: 09-30-2024 End: 09-30-2024 Patient encounter procedure Shraddha Lopze PA-C Work Phone: [facility] [place] Comment on above: Well adult exam (Myesha antonio Dx); Screening for depression; Encounter for screening examination for other mental health and behavioral disorders Start: 09-30-2024 End: 09-30-2024 Patient encounter status Shraddha Lopez PA-C Work Phone: [facility] Work Phone: Start: 09-30-2024 End: 09-30-2024 ambulatory SHRADDHA LOPEZ Facility:[facility] Start: 05-04-2024 End: 05-04-2024 Telephone encounter Royce Nguyen MD Work Phone: [facility] [place] Comment on above: Patient Update Start: 05-04-2024 End: 05-04-2024 ambulatory ROYCE NGUYEN Facility:[facility] Start: 05-04-2024 End: 05-04-2024 Patient encounter procedure Dayna Montaño PA-C Work Phone: [facility] Comment on above: Sinus congestion (Pr imary Dx); Acute conjunctivitis of both eyes, unspecified acute conjunctivitis type Start: 05-03-2024 End: 05-03-2024 ambulatory ROYCE NGUYEN Facility:[facility] Start: 05-03-2024 End: 05-03-2024 Office outpatient visit 15 minutes Royce Virgen APRN.CNP Work Phone: [facility] Comment on above: Viral illness (Prima ry Dx) Start: 04-29-2024 End: 04-29-2024 ambulatory Beth Case Facility:[facility] Start: 02-24-2024 End: 02-24-2024 Telephone encounter Missy SINCLAIR Work Phone: [facility] Comment on above: Results Start: 02-23-2024 End: 02-23-2024 Office outpatient visit 15 minutes Levi Lopes MD Work Phone: [facility] Comment on above: Sore throat (Primary Dx); URI, acute Start: 02-23-2024 End: 02-23-2024 ambulatory ROYCE NGUYEN Facility:[facility] Start: 08-22-2023 End: 08-23-2023 ambulatory GRISEL JOVEL CNP Facility:[facility] Start: 08-11-2023 End: 08-12-2023 ambulatory GRISEL JOVEL CNP Facility:[facility] Start: 07-22-2023 Telephone encounter Shraddha calderón PA-C Work Phone: [facility] [place] Comment on above: Results Start: 07-21-2023 End: 07-21-2023 Patient encounter procedure Shraddha Lopez PA-C Work Phone: [facility] [place] Comment on above: Seasonal allergies ( Primary Dx); Family history of thyroid disease; Family history of mitral valve prolapse; Encounter for lipid screening for cardiovascular disease; Screening for diabetes mellitus Start: 06-12-2023 End: 06-12-2023 ambulatory DO Carrie Costa Work Phone: [facility] Work Phone: Start: 06-12-2023 End: 06-12-2023 Patient encounter procedure DO Carrie Costa Work Phone: [facility] Work Phone: Start: 11-25-2022 Refill Whitley Quan MD Work Phone: [facility] Comment on above: Refill Request Start: 04-15-2022 End: 04-15-[address] Whitley Quan Work Phone: [facility] Start: 04-15-2022 End: 04-15-[address] Whitley Quan Work Phone: [facility] Work Phone: Start: 04-15-2022 End: 04-15-[address] Whitley Quan Work Phone: [facility]-Outpatient Breast [facility] Start: 03-07-2022 End: 03-07-2022 Patient encounter procedure Royce Virgen APRN.CNP Work Phone: [facility] Comment on above: URI with cough and c ongestion (Primary Dx) Start: 03-26-2021 End: 03-26-2021 Subsequent hospital visit by physician Xr [facility] [place] Work Phone: Radiology Comment on above: Cough [R05.9] Procedures Date Procedure Procedure Detail Performing Clinician Start: 01-26-2025 Serologic test for h erpes simplex No Primary Care Physician Comment on above: Please note refere nce interval changeHSV-1 IgG testing performed using the [employer]al[employer] HSV-1IgG assay. Start: 01-26-2025 Serologic test for syphilis No Primary Care Physician Start: 10-29-2024 End: 10-29-2024 Polymerase chain reaction analysis No Primary Care Physician Start: 10-25-2024 Iadna hepatitis c qu ant & reverse clinical editor Betyyoshi Hinsons REVENUE OFFICER-C Work Phone: Comment on above: Test not performed Start: 10-25-2024 Serologic test for h erpes simplex Bety Doniphan REVENUE OFFICER-C Work Phone: Comment on above: Please note refere nce interval changeHSV-1 IgG testing performed using the [employer]al[employer] HSV-1IgG assay. Start: 10-25-2024 Serologic test for syphilis Bety Hinsons REVENUE OFFICER-C Work Phone: Start: 09-30-2024 Adult depression scr eening assessment Shraddha Lopez PA-C Work Phone: Start: 02-23-2024 STREP A MOLECULAR (POC) Royce Virgen APRN.NUT CHOPPER Work Phone: Start: 04-15-[address] Whitley Quan Work Phone: Start: 03-26-2021 Radiologic exam ches t 2 views Royce Virgen APRN.CNP Work Phone: Start: 09-19-2020 Adult depression scr eening assessment Royce Virgen APRN.CNP Work Phone: Plan of Treatment Date Care Activity Detail Author Start: 12-18-2025 Urine microalbumin profile [facility] Start: 09-30-2025 Anxiety Screening Anxiety Screening [facility] Start: 09-30-2025 Covid-19 Vaccine ( season) Covid-19 Vaccine ( season) [facility] Comment on above: Postponed from 01/17 (Declined at this time) Start: 09-30-2025 Depression Screening Depression Scre ening [facility] Start: 09-30-2025 Hepatitis C screening Hepatitis C Sc reening [facility] Comment on above: Postponed from 06/23 (Declined at this time) Start: 09-30-2025 HIV screening HIV Screening [facility] Comment on above: Postponed from 06/23 (Declined at this time) Start: 01-26-2025 Chlamydia deoxyribon ucleic acid detection [facility] Start: 01-26-2025 Serologic test for syphilis [facility] Start: 01-26-2025 [facility] Start: 01-17-2025 Influenza vaccination Influenz a Vaccine (Season Ended) [facility] Start: 07-20-2024 Covid-19 Vaccine (#1) Covid-19 Vacci ne (#1) [facility] Comment on above: Postponed from 12/21 (Declined at this time) Start: 05-18-2024 Depression Assessment Depression Ass essment [facility] Comment on above: Postponed from 05/19 (Declined at this time) Start: 02-24-2024 End: 02-24-2024 Patient encounter procedure 02/24/2024 9:40 AM EDT Office Visit [facility] [address] [place] [id number] Erika Batista APRN.NUT CHOPPER [address] [place] [address] flu like symptoms [facility] Comment on above: flu like symptoms Start: 01-18-2024 Covid-19 Vaccine ( season) Covid-19 Vaccine ( season) [facility] Start: 01-18-2024 Influenza vaccination Influenza Vacc ine (#1) [facility] Start: 11-16-2023 Influenza vaccination Influenza Vacc ine (#1) [facility] Comment on above: Postponed from 01/17 (Declined at this time) Start: 07-21-2023 End: 10-20-2023 Hemoglobin A1c in Blood [facility] Work Phone: Comment on above: Expected: 07/21/2023 , Expires: 10/20/2023 Start: 07-21-2023 End: 10-20-2023 LIPID PANEL, NONFASTING [facility] Work Phone: Comment on above: Expected: 07/21/2023 , Expires: 10/20/2023 Start: 01-17-2023 Influenza vaccination INFLUENZA (#1) [facility] Start: 2022 Anxiety Screening Anxiety Screening [facility] Start: 2022 CHLAMYDIA SCREENING (18-24) CHLAMYDIA SCREENING (18-24) [facility] Start: 2022 Depression Screening Depression Scre ening [facility] Start: 2022 GC (GONORRHEA) SCREE TREE (18-24) GC (GONORRHEA) SCREENING (18-24) [facility] Start: 2022 HEPATITIS C SCREENING HEPATITIS C [facility] Start: 2022 Hepatitis C screening Hepatitis C [facility] Start: 2022 HIV SCREENING HIV SCREENING [facility] Start: 2022 HIV screening HIV Screening [facility] Start: 2022 Screening for Chlamy mark trachomatis Chlamydia Screening (18-24) [facility] Start: 05-19-2022 DEPRESSION ASSESSMENT DEPRESSION ASS ESSMENT [facility] Start: 01-17-2022 Influenza vaccination INFLUENZA (#1) [facility] Start: 09-19-2021 Adult depression scr eening assessment DEPRESSION SCREENING [facility] Start: 2020 Meningococcal B Vacc ine (1 of 2 - Standard) Meningococcal B Vaccine (1 of 2 - Standard) [facility] Start: 2020 Meningococcal B Vacc ine: Consider Based On Risk (1 of 2 - Patient Seeks Protection) Meningococcal B Vaccine: Consider Based On Risk (1 of 2 - Patient Seeks Protection) [facility] Start: 2020 MENINGOCOCCAL B: Con staff nuclear medicine technologist based on risk (1 of 2 - Patient Seeks Protection) MENINGOCOCCAL B: Consider based on risk (1 of 2 - Patient Seeks Protection) [facility] Start: 2019 CHLAMYDIA SCREENING (<18) CHLA MYDIA SCREENING (<18) [facility] Start: 2019 GC (GONORRHEA) SCREE TREE (<18) GC (GONORRHEA) SCREENING (<18) [facility] Start: 2018 PEDS TO ADULT TRANSI TION ANNUAL ASSESSMENT PEDS TO ADULT TRANSITION ANNUAL ASSESSMENT [facility] Start: 2016 PEDS TO ADULT TRANSI TION INITIAL DISCUSSION PEDS TO ADULT TRANSITION INITIAL DISCUSSION [facility] Start: 2014 MENINGOCOCCAL B: Con staff nuclear medicine technologist based on risk (1 of 2 - Risk Bexsero 2-dose series) MENINGOCOCCAL B: Consider based on risk (1 of 2 - Risk Bexsero 2-dose series) [facility] Start: 2004 COVID-19 VACCINE (#1) COVID-19 VACCI NE (#1) [facility] COVID & INFLUENZA A/ B & RSV PCR, ROUTINE COVID & INFLUENZA A/B & RSV PCR, ROUTINE Microbiology Routine Sore throat URI, acute Ordered: 02/23/2024 [facility] Work Phone: Comment on above: Ordered: 02/23/2024 Hepatitis B virus hernandez rface Ag [Presence] in Serum [facility] Measurement of Human herpesvirus 2 antibody [facility] Neisseria gonorrhoea e rRNA [Presence] in Unspecified specimen by TOÑO with probe detection [facility] PCR test for Chlamyd ia trachomatis [facility] Polymerase chain noa ction analysis [facility] Serologic test for h erpes simplex [facility] Immunizations Immunization Date Immunization Notes Care Provider Zoie sánchez 09-19-2020 meningococcal polysaccharide (groups A, C, Y and W-135) diphtheria toxoid conjugate vaccine (MCV4P) Royce Virgen APRN.CNP Work Phone: [facility] 12-14-2019 Human Papillomavirus 9-valent vaccine Royce Virgen APRN.CNP Work Phone: [facility] 06-10-2019 Human Papillomavirus 9-valent vaccine Royce Virgen APRN.CNP Work Phone: [facility] 06-10-2019 influenza, injectabl e, quadrivalent, preservative free Royce Virgen REFERRAL NURSE.NUT CHOPPER Work Phone: [facility] 06-10-2019 influenza virus vacc ine, unspecified formulation Shraddha Lopez PA-C Work Phone: [facility] 05-24-2018 influenza, injectabl e, quadrivalent, contains preservative Royce Virgen REFERRAL NURSE.[facility] Work Phone: [facility] Work Phone: 12-19-2015 meningococcal polysaccharide (groups A, C, Y and W-135) diphtheria toxoid conjugate vaccine (MCV4P) Royce Virgen REFERRAL NURSE.[facility] Work Phone: [facility] 12-19-2015 tetanus toxoid, redu brooke diphtheria toxoid, and acellular pertussis vaccine, adsorbed Royce Virgen REFERRAL NURSE.NUT CHOPPER Work Phone: [facility] 04-17-2010 influenza virus vacc ine, unspecified formulation Royce Virgen REFERRAL NURSE.[facility] Work Phone: [facility] Work Phone: 10-18-2009 diphtheria, tetanus toxoids and acellular pertussis vaccine Royce Virgen REFERRAL NURSE.[facility] Work Phone: [facility] Work Phone: 10-18-2009 measles, mumps and rubella virus vaccine Royce Virgen REFERRAL NURSE.NUT CHOPPER Work Phone: [facility] [facility] Work Phone: 10-18-2009 poliovirus vaccine, inactivated Royce Virgen REFERRAL NURSE.[employer] Work Phone: [facility] Work Phone: 10-18-2009 varicella virus vaccine David mandi Param REFERRAL NURSE.NUT [employer] Work Phone: [facility] Work Phone: 03-28-2009 novel influenza-H1N1 -09, all formulations Royce Virgen REFERRAL NURSE.[employer] Work Phone: [facility] 02-03-2009 influenza virus vacc ine, unspecified formulation Royce Virgen REFERRAL NURSE.[facility] Work Phone: [facility] Work Phone: 03-24-2008 influenza virus vacc ine, unspecified formulation Royce Virgen REFERRAL NURSE.[facility] Work Phone: [facility] Work Phone: 06-25-2007 influenza virus vacc ine, unspecified formulation Royce Virgen REFERRAL NURSE.[facility] Work Phone: [facility] Work Phone: 09-30-2005 diphtheria, tetanus toxoids and acellular pertussis vaccine Royce Virgen REFERRAL NURSE.[facility] Work Phone: [facility] Work Phone: 09-30-2005 haemophilus influenz ae type b vaccine, HbOC conjugate Royce Virgen REFERRAL NURSE.[facility] Work Phone: [facility] Work Phone: 09-30-2005 pneumococcal conjuga te vaccine, 7 valent Royce Virgen REFERRAL NURSE.[facility] Work Phone: [facility] Work Phone: 06-26-2005 measles, mumps and rubella virus vaccine Royce Virgen REFERRAL NURSE.[facility] Work Phone: [facility] Work Phone: 06-26-2005 pneumococcal conjuga te vaccine, 7 valent Royce Virgen REFERRAL NURSE.[facility] Work Phone: [facility] Work Phone: 06-26-2005 varicella virus vaccine David Virgen REFERRAL NURSE.[facility] Work Phone: [facility] Work Phone: 2004 DTaP-hepatitis B and poliovirus vaccine Royce Virgen REFERRAL NURSE.[facility] Work Phone: [facility] Work Phone: 2004 haemophilus influenz ae type b vaccine, HbOC conjugate Roycemandi [facility] REFERRAL NURSE.[facility] Work Phone: [facility] Work Phone: 2004 pneumococcal conjuga te vaccine, 7 valent [facility] REFERRAL NURSE.[facility] Work Phone: [facility] Work Phone: 2004 DTaP-hepatitis B and poliovirus vaccine [facility] REFERRAL NURSE.[facility] Work Phone: [facility] Work Phone: 2004 haemophilus influenz ae type b vaccine, HbOC conjugate Royce [facility] REFERRAL NURSE.[facility] Work Phone: [facility] Work Phone: 2004 pneumococcal conjuga te vaccine, 7 valent [facility] REFERRAL NURSE.[facility] Work Phone: [facility] Work Phone: 2004 DTaP-hepatitis B and poliovirus vaccine Roycemandi [place] [facility] REFERRAL NURSE.[facility] Work Phone: [facility] Work Phone: 2004 haemophilus influenz ae type b vaccine, HbOC conjugate Roycemandi [place] [facility] REFERRAL NURSE.[facility] Work Phone: [facility] Work Phone: 2004 pneumococcal conjuga te vaccine, 7 valent [facility] REFERRAL NURSE.[facility] Work Phone: [facility] Work Phone: 2004 hepatitis B vaccine, pediatric or pediatric/adolescent dosage Roycemandi [place] [facility] REFERRAL NURSE.[facility] Work Phone: [facility] Work Phone: Payers Date Payer Category Payer Self-pay [id number] 2022 [facility] [id number] 2022 Unknown [id number] 2009 Unknown [id number] 2004 Unknown [id number] 2004 Unknown [id number] Self-pay [id number] Unknown [id number] Unknown [id number] Unknown [id number] Unknown [id number] Unknown [id number] Unknown [id number] Social History Date Type Detail Facility Start: 03-07-2022 End: 10-29-2024 Tobacco smoking status NHIS Never smoked tobacco [facility] Start: 10-21-2017 End: 03-07-2022 Tobacco use and exposure Smokeless tobacco non-user [facility] Start: 03-07-2022 End: 09-30-2024 Alcohol intake Current non-drinker of alcohol (finding) [facility] Start: 2004 Sex Assigned At Not on file [facility] Start: 02-24-2021 End: 03-07-2022 Exposure to SARS-CoV-2 (event) Not sure [facility] Start: 04-15-2022 End: 06-12-2023 Tobacco smoking status NDIS Unknown if ever smoked [facility] Start: 2004 Sex Assigned At Female W [facility] Start: 03-07-2022 End: 02-24-2024 History of Social function [facility] Start: 03-07-2022 End: 02-24-2024 Tobacco use panel [facility] National Score (1-100), lower number is lower risk 35 [facility] Functional Status Date Assessment Result Facility 09-08-2014 Are you deaf, or do you have serious difficulty hearing No 09/08/2014 1:32 PM Freddy Martins RN No [facility] 09-08-2014 Are you blind, or do you have serious difficulty seeing, even when wearing glasses No 09/08/2014 1:32 PM Freddy Martins RN No [facility] 09-08-2014 Do you have serious difficulty walking or climbing stairs No 09/08/2014 1:32 PM Freddy Martins RN No [facility] 09-08-2014 Do you have difficul ty dressing or bathing No 09/08/2014 1:32 PM Freddy Martins RN No [facility] Mental Status Date Assessment Result Facility 09-08-2014 Because of a physica l, mental, or emotional condition, do you have serious difficulty concentrating, remembering, or making decisions No 09/08/2014 1:32 PM Freddy Martins RN No [facility] Clinical Notes 03-26-2021 to 01-26-2025 Note Date & Type Note Facility 01-26-2025 Progress note [facility] 10-29-2024 Evaluation note Diagnosis Onset Date Resolution Irregular menstrual cycle acute October 29, 2024 3:46pm Possible exposure to STD acute October 29, 2024 3:46pm Women's annual routine gynecological examination acute October 29, 2024 3:46pm [facility] Work Phone: 1(394) 260-958306-13-2025 Evaluation note* Diagnosis Onset Date Resolution Status Admit Date Irregular menstrual cycle acute October 29, 2024 3:46pm Possible exposure to STD acute October 29, 2024 3:46pm Women's annual routine gynecological examination acute October 172024 3:46pm Possible exposure to STD acute January 26, 2025 11:34am [facility] Work Phone: [phone] NoteHNO ID: [id number] Author: SHRADDHA LOPEZ PA-C Service: ? Author Type: Physician District Fire Chief Type: Progress Notes Filed: 09/30/2024 14:25 Note Text: Chief Complaint Patient presents with: Yearly Exam HPI Barb Bennett is a 19 year old female who presents here today for physical. Annual Wellness Exam: - No significant medical or surgical changes since last year. URI: - Recent mild cold, currently resolving. - Denies current cough, wheezing, or dyspnea. - Attributes symptoms to a combination of allergies and a mild cold. Past medical history, appointments, medications, allergies reviewed. Previous Medical History PAST MEDICAL HISTORY Diagnosis Date NEGATIVE MEDICAL HISTORY Seasonal allergies 09/22/2013 Previous Surgical History PAST SURGICAL HISTORY Procedure Laterality Date NONE Family History FAMILY HISTORY Problem Relation Age of Onset Thyroid Mother lump on thyroid removed other (mvp) Mother 30 mild mitral valve prolapse Heart Maternal Grandfather age 5959 years old Heart Paternal Grandfather NM Hypertension Paternal Grandfather Patient Allergies ALLERGIES Allergen Reactions Seasonal Allergies Other: See Comments Itchy eyes, nasal congestion Current Medications Current Outpatient Medications on File Prior to Visit Medication Sig Yskduhjpzfeyxth-Dtdewvcwg-ZW (BROMFED DM) 2-30-10 mg/5 mL syrup Take 10 mL by mouth four times a day as needed. (Patient not taking: Reported on 09/30/2024) Levonorgestrel-Ethinyl Estrad 0.1mg - 20mcg per tablet Take 1 tablet by mouth every afternoon. fexofenadine (JULITA ALLERGY) 180 mg tablet Take 1 tablet by mouth once daily. fluticasone (FLONASE) 50 mcg/actuation nasal spray Use 1 [place] in each nostril once daily. No current facility-administered medications on file prior to visit. Social History Social History Tobacco Use Smoking status: Never Smokeless tobacco: Never Vaping Use Vaping status: Never Used Substance Use Topics Alcohol use: No Drug use: No Review of Symptoms REVIEW OF SYSTEMS GENERAL: No weight loss, malaise or fevers HEENT: No changes in hearing or vision, no nose bleeds or other nasal problems NECK: Negative for lumps, goiter, pain and significant neck swelling RESPIRATORY: Negative for cough, hemoptysis, wheezing, COPD, dyspnea or shortness of breath CARDIOVASCULAR: Negative for chest pain, leg swelling, hypertension, CHF or palpitations GI: Negative for abdominal discomfort, blood in stools or black stools, change in bowel habit, heart burn, nausea, vomiting : No history of dysuria, frequency or incontinence SERVICES ACCOUNT MANAGER: Negative for abnormal vaginal bleeding, abnormal vaginal discharge MUSCULOSKELETAL: Negative for joint pain or swelling, back pain or muscle pain SKIN: Negative for lesions, rash, and itching PSYCH: Negative for sleep disturbance, mood disorder and recent psychosocial stressors HEMATOLOGY/LYMPHOLOGY: Negative for prolonged bleeding, bruising easily or swollen nodes ENDOCRINE: Negative for cold or heat intolerance, polyuria, polydipsia and goiter NEURO: No history of headaches, syncope, paralysis, seizures or tremors SEE HPI EXAM: BP 102/80 (BP Site: Left Arm, BP Position: Sitting, BP Cuff Size: Regular Adult) Pulse 88 Temp 37.3 ?C (99.2 ?F) Resp 16 Ht 172.5 cm (5' 7.91) Wt 49.4 kg (109 lb) LMP 09/25/2024 (Approximate) SpO2 99% BMI 16.62 kg/m? BP 102/80 (BP Site: Left Arm, BP Position: Sitting, BP Cuff Size: Regular Adult) Pulse 88 Temp 37.3 ?C (99.2 ?F) Resp 16 Ht 172.5 cm (5' 7.91) Wt 49.4 kg (109 lb) LMP 09/25/2024 (Approximate) SpO2 99% BMI 16.62 kg/m? General Appearance: Well appearing, alert, in no acute distress, well-hydrated, well nourished.. Skin: Skin color, texture, turgor normal, no suspicious rashes or lesions. Head: Normocephalic, no masses, lesions, tenderness or abnormalities. Eyes: Anicteric sclera. Pupils are equally round and reactive to light. Extraocular movements are intact. . Ears: External ears normal, canals clear, TMs pearly gonzales. Nose/Sinuses: Nares normal, septum midline, mucosa normal, no drainage or sinus tenderness. Oropharynx: Lips, mucosa, and tongue normal, teeth and gums normal, oropharynx normal. Neck: Supple, no adenopathy; thyroid symmetric, normal size, no bruits. Lungs: Lungs clear to auscultation. No wheezing, rhonchi, rales.. Heart: RRR without murmur, gallop, or rubs. No ectopy. Abdomen: Normal abdominal exam, Abdomen soft, non-tender. Bowel sounds normal. No masses, organomegaly. Extremities: No deformities, edema, skin discoloration, clubbing or cyanosis. Good capillary refill. . Peripheral Pulses: Normal. Neurologic: Gait normal. Reflexes normal and symmetric. Sensation grossly intact.. Health Maintenance List Meningococcal B Vaccine(1 of 2 - Standard) Never done GC (Gonorrhea) Screening (18-24) Never done Chlamydia Screen (more content not included)...[facility] 09-30-2024 History of Present illness Narrative* Shraddha Lopez PA-C - 09/30/2024 1:54 PM EDT Chief Complaint Patient presents with: Yearly Exam HPI Barb Bennett is a 19 year old female who presents here today for physical. Annual Wellness Exam: - No significant medical or surgical changes since last year. URI: - Recent mild cold, currently resolving. - Denies current cough, wheezing, or dyspnea. - Attributes symptoms to a combination of allergies and a mild cold. Past medical history, appointments, medications, allergies reviewed. Previous Medical History PAST MEDICAL HISTORY Diagnosis Date NEGATIVE MEDICAL HISTORY Seasonal allergies 09/22/2013 Previous Surgical History PAST SURGICAL HISTORY Procedure Laterality Date NONE Family History FAMILY HISTORY Problem Relation Age of Onset Thyroid Mother lump on thyroid removed other (mvp) Mother 30 mild mitral valve prolapse Heart Maternal Grandfather age 5959 years old Heart Paternal Grandfather NM Hypertension Paternal Grandfather Patient Allergies ALLERGIES Allergen Reactions Seasonal Allergies Other: See Comments Itchy eyes, nasal congestion Current Medications Current Outpatient Medications on File Prior to Visit Medication Sig Cfvydzviedvtvir-Pxegdtvjp-JC (BROMFED DM) 2-30-10 mg/5 mL syrup Take 10 mL by mouth four times a day as needed. (Patient not taking: Reported on 09/30/2024) Levonorgestrel-Ethinyl Estrad 0.1mg - 20mcg per tablet Take 1 tablet by mouth every afternoon. fexofenadine (JULITA ALLERGY) 180 mg tablet Take 1 tablet by mouth once daily. fluticasone (FLONASE) 50 mcg/actuation nasal spray Use 1 [place] in each nostril once daily. No current facility-administered medications on file prior to visit. Social History Social History Tobacco Use Smoking status: Never Smokeless tobacco: Never Vaping Use Vaping status: Never Used Substance Use Topics Alcohol use: No Drug use: No Review of Symptoms REVIEW OF SYSTEMS GENERAL: No weight loss, malaise or fevers HEENT: No changes in hearing or vision, no nose bleeds or other nasal problems NECK: Negative for lumps, goiter, pain and significant neck swelling RESPIRATORY: Negative for cough, hemoptysis, wheezing, COPD, dyspnea or shortness of breath CARDIOVASCULAR: Negative for chest pain, leg swelling, hypertension, CHF or palpitations GI: Negative for abdominal discomfort, blood in stools or black stools, change in bowel habit, heart burn, nausea, vomiting : No history of dysuria, frequency or incontinence SERVICES ACCOUNT MANAGER: Negative for abnormal vaginal bleeding, abnormal vaginal discharge MUSCULOSKELETAL: Negative for joint pain or swelling, back pain or muscle pain SKIN: Negative for lesions, rash, and itching PSYCH: Negative for sleep disturbance, mood disorder and recent psychosocial stressors HEMATOLOGY/LYMPHOLOGY: Negative for prolonged bleeding, bruising easily or swollen nodes ENDOCRINE: Negative for cold or heat intolerance, polyuria, polydipsia and goiter NEURO: No history of headaches, syncope, paralysis, seizures or tremors SEE HPI EXAM: BP 102/80 (BP Site: Left Arm, BP Position: Sitting, BP Cuff Size: Regular Adult) Pulse 88 Temp 37.3 C (99.2 F) Resp 16 Ht 172.5 cm (5' 7.91) Wt 49.4 kg (109 lb) LMP 09/25/2024 (Approximate) SpO2 99% BMI 16.62 kg/m BP 102/80 (BP Site: Left Arm, BP Position: Sitting, BP Cuff Size: Regular Adult) Pulse 88 Temp 37.3 C (99.2 F) Resp 16 Ht 172.5 cm (5' 7.91) Wt 49.4 kg (109 lb) LMP 09/25/2024 (Approximate) SpO2 99% BMI 16.62 kg/m General Appearance: Well appearing, alert, in no acute distress, well-hydrated, well nourished.. Skin: Skin color, texture, turgor normal, no suspicious rashes or lesions. Head: Normocephalic, no masses, lesions, tenderness or abnormalities. Eyes: Anicteric sclera. Pupils are equally round and reactive to light. Extraocular movements are intact. . Ears: External ears normal, canals clear, TMs pearly gonzales. Nose/Sinuses: Nares normal, septum midline, mucosa normal, no drainage or sinus tenderness. Oropharynx: Lips, mucosa, and tongue normal, teeth and gums normal, oropharynx normal. Neck: Supple, no adenopathy; thyroid symmetric, normal size, no bruits. Lungs: Lungs clear to auscultation. No wheezing, rhonchi, rales.. Heart: RRR without murmur, gallop, or rubs. No ectopy. Abdomen: Normal abdominal exam, Abdomen soft, non-tender. Bowel sounds normal. No masses, organomegaly. Extremities: No deformities, edema, skin discoloration, clubbing or cyanosis. Good capillary refill. . Peripheral Pulses: Normal. Neurologic: Gait normal. Reflexes normal and symmetric. Sensation grossly intact.. Health Maintenance List Meningococcal B Vaccine(1 of 2 - Standard) Never done GC (Gonorrhea) Screening (18-24) Never done Chlamydia Screening (18-24) Never done Hepatitis C Screening due on 09/30/2025 HIV Screening due on 09/30/2025 Covid-19 Vaccine( season) due on 09/30/2025 Influenza Vaccine(Season Ended) due on 01/17/2025 Depression Screening due on 09/30/2025 Anxiety Screening due on 09/30/2025 DTaP,Tdap,Td Vaccine(7 - Td or Tdap) due on 12/18/2025 Hepatitis B Vaccine Completed HPV Vaccine Completed Data reviewed N/a Assessment and Plan 1. Well adult exam (Z00.00) - Discussed Pap smear recommendations; advised to start at age 21. - Offered HIV and hepatitis C screening; patient declined. - Discussed cholesterol and A1c testing; patient opted to wait. 2. Screening for depression (Z13.31) - No depression, anxiety, or sleeping concerns. 3. Encounter for screening examination for other mental health and behavioral disorders (Z13.39) Shraddha Lopez PA-C Recording using [employer] software for draft documentation of the visit was discussed with the patient/authorized floor representative; all questions welcomed and answered. Patient/authorized floor representative agreed to [facility] NoteHNO ID: [id number] Author: DAYNA MONTAÑO PA-C Service: ? Author Type: Physician District Fire Chief Type: Progress Notes Filed: 05/04/2024 14:19 Note Text: This note was created using [employer]. Subjective Barb Bennett is a 18 year old female. HPI Patient presents with a chief complaint of cough and nasal congestion over the past 6 days. She is also had some sinus pressure. Was seen yesterday diagnosed with a viral illness. She started getting right eye redness and drainage over the past day so came back for evaluation. Her left eye is also itchy. She denies wearing contacts. Did not get anything in her eye she can think of. No vomiting. No fever. No home COVID test done. She was rx a nose spray yesterday, she has not used this yet. Review of Systems Constitutional: Negative for fever. HENT: Positive for congestion, postnasal drip, sinus pressure and sinus pain. Negative for ear pain and sore throat. Eyes: Positive for pain, discharge, redness and itching. Negative for photophobia and visual disturbance. Respiratory: Positive for cough. Negative for shortness of breath and wheezing. Cardiovascular: Negative. Gastrointestinal: Negative. Musculoskeletal: Negative. All other systems reviewed and are negative. PAST MEDICAL HISTORY Diagnosis Date NEGATIVE MEDICAL HISTORY Seasonal allergies 09/22/2013 Current Outpatient Medications Medication Sig Dispense Refill oxymetazoline (AFRIN, OXYMETAZOLINE,) 0.05 % nasal spray Use 2 Sprays in each nostril two times a day for 5 days. 22 mL 0 Levonorgestrel-Ethinyl Estrad 0.1mg - 20mcg per tablet Take 1 tablet by mouth every afternoon. fexofenadine (JULITA ALLERGY) 180 mg tablet Take 1 tablet by mouth once daily. fluticasone (FLONASE) 50 mcg/actuation nasal spray Use 1 [place] in each nostril once daily. 1 Bottle 0 amoxicillin-clavulanate potassium (AUGMENTIN) 875-125 mg per tablet Take 1 tablet by mouth two times a day for 7 days. 14 tablet 0 Pluwpxoigpucyid-Ruagcnwij-RV (BROMFED DM) 2-30-10 mg/5 mL syrup Take 10 mL by mouth four times a day as needed. 200 mL 0 trimethoprim-polymyxin (POLYTRIM) 10,000 unit- 1 mg/mL ophthalmic solution Use 1 Drop in both eyes every 4 hours for 7 days. 10 mL 0 No current facility-administered medications for this visit. PAST SURGICAL HISTORY Procedure Laterality Date NONE FAMILY HISTORY Problem Relation Age of Onset Thyroid Mother lump on thyroid removed other (mvp) Mother 30 mild mitral valve prolapse Heart Maternal Grandfather age 5959 years old Heart Paternal Grandfather NM Hypertension Paternal Grandfather Social History Tobacco Use Smoking status: Never Smokeless tobacco: Never Vaping Use Vaping status: Never Used Substance Use Topics Alcohol use: No Drug use: No Objective BP 100/64 Pulse 88 Temp 36.8 ?C (98.2 ?F) Resp 18 Wt 54.5 kg (120 lb 2.4 oz) LMP 2023 (Approximate) SpO2 96% BMI 18.42 kg/m? Physical Exam Vitals reviewed. Constitutional: Appearance: Normal appearance. HENT: Head: Normocephalic and atraumatic. Right Ear: Ear canal and external ear normal. Left Ear: Tympanic membrane, ear canal and external ear normal. Ears: Comments: Serous appearing effusion right middle ear Nose: Congestion present. Mouth/Throat: Mouth: Mucous membranes are moist. Pharynx: Oropharynx is clear. Cardiovascular: Rate and Rhythm: Normal rate and regular rhythm. Heart sounds: Normal heart sounds. Pulmonary: Effort: Pulmonary effort is normal. Breath sounds: Normal breath sounds. Musculoskeletal: Cervical back: Neck supple. Skin: General: Skin is warm and dry. Neurological: General: No focal deficit present. Mental Status: She is alert. Assessment and Plan ASSESSMENT/PLAN: 1. Sinus congestion - ICD9: 478.19, ICD10: R09.81 (primary diagnosis) Discussed with patient and mom that this is likely still viral at this point with her other symptoms of cough rhinorrhea, and now conjunctivitis. Discussed I would print her prescription for Augmentin if sinus congestion not improving in 3-4 days. Also given Rx for Polytrim drops. again discussed possible likelihood of viral conjunctivitis as well. 2. Acute conjunctivitis of both eyes, unspecified acute conjunctivitis type - ICD9: 372.00, ICD10: H10.33 - see medication orders - course and contagiousness issues discussed, including hand washing. - Instructed to call if high fever, development of periorbital redness or swelling, eye pain, visual changes, concerns or if symptoms persist. [facility]12-17-2024 History of Present illness Narrative* Dayna Montaño PA- - 05/04/2024 2:15 PM EST This note was created using [employer]. Subjective Barb Bennett is a 18 year old female. HPI Patient presents with a chief complaint of cough and nasal congestion over the past 6 days. She is also had some sinus pressure. Was seen yesterday diagnosed with a viral illness. She started gettingright eye redness and drainage over the past day so came back for evaluation. Her left eye is also itchy. She denies wearing contacts. Did not get anything in her eye she can think of. No vomiting. No fever. No home COVID test done. She was rx a nose spray yesterday, she has not used this yet. Review of Systems Constitutional: Negative for fever. HENT: Positive for congestion, postnasal drip, sinus pressure and sinus pain. Negative for ear painand sore throat. Eyes: Positive for pain, discharge, redness and itching. Negative for photophobia and visual disturbance. Respiratory: Positive for cough. Negative for shortness of breath and wheezing. Cardiovascular: Negative. Gastrointestinal: Negative. Musculoskeletal: Negative. All other systems reviewed and are negative. PAST MEDICAL HISTORY Diagnosis Date NEGATIVE MEDICAL HISTORY Seasonal allergies 09/22/2013 Current Outpatient Medications Medication Sig Dispense Refill oxymetazoline (AFRIN, OXYMETAZOLINE,) 0.05 % nasal spray Use 2 Sprays in each nostril two times a day for 5 days. 22 mL 0 Levonorgestrel-Ethinyl Estrad 0.1mg - 20mcg per tablet Take 1 tablet by mouth every afternoon. fexofenadine (JULITA ALLERGY) 180 mg tablet Take 1 tablet by mouth once daily. fluticasone (FLONASE) 50 mcg/actuation nasal spray Use 1 [place] in each nostril once daily. 1 Bottle0 amoxicillin-clavulanate potassium (AUGMENTIN) 875-125 mg per tablet Take 1 tablet by mouth two times a day for 7 days. 14 tablet 0 Rqobwntbdemiyfr-Wbhyfldex-XX (BROMFED DM) 2-30-10 mg/5 mL syrup Take 10 mL by mouth four times a day as needed. 200 mL 0 trimethoprim-polymyxin (POLYTRIM) 10,000 unit- 1 mg/mL ophthalmic solution Use 1 Drop in both eyes every 4 hours for 7 days. 10 mL 0 No current facility-administered medications for this visit. PAST SURGICAL HISTORY Procedure Laterality Date NONE FAMILY HISTORY Problem Relation Age of Onset Thyroid Mother lump on thyroid removed other (mvp) Mother 30 mild mitral valve prolapse Heart Maternal Grandfather age 5959 years old Heart Paternal Grandfather NM Hypertension Paternal Grandfather Social History Tobacco Use Smoking status: Never Smokeless tobacco: Never Vaping Use Vaping status: Never Used Substance Use Topics Alcohol use: No Drug use: No Objective BP 100/64 Pulse 88 Temp 36.8 C (98.2 F) Resp 18 Wt 54.5 kg (120 lb 2.4 oz) LMP 2023(Approximate) SpO2 96% BMI 18.42 kg/m Physical Exam Vitals reviewed. Constitutional: Appearance: Normal appearance. HENT: Head: Normocephalic and atraumatic. Right Ear: Ear canal and external ear normal. Left Ear: Tympanic membrane, ear canal and external ear normal. Ears: Comments: Serous appearing effusion right middle ear Nose: Congestion present. Mouth/Throat: Mouth: Mucous membranes are moist. Pharynx: Oropharynx is clear. Cardiovascular: Rate and Rhythm: Normal rate and regular rhythm. Heart sounds: Normal heart sounds. Pulmonary: Effort: Pulmonary effort is normal. Breath sounds: Normal breath sounds. Musculoskeletal: Cervical back: Neck supple. Skin: General: Skin is warm and dry. Neurological: General: No focal deficit present. Mental Status: She is alert. Assessment and Plan ASSESSMENT/PLAN: 1. Sinus congestion - ICD9: 478.19, ICD10: R09.81 (primary diagnosis) Discussed with patient and mom that this is likely still viral at this point with her other symptoms of cough rhinorrhea, and now conjunctivitis. Discussed I would print her prescription for Augmentin if sinus congestion not improving in 3-4 days. Also given Rx for Polytrim drops. again discussed possible likelihood of viral conjunctivitis as well. 2. Acute conjunctivitis of both eyes, unspecified acute conjunctivitis type - ICD9: 372.00, ICD10: H10.33 - see medication orders - course and contagiousness issues discussed, including hand washing. - Instructed to call if high fever, development of periorbital redness or swelling, eye pain, visual changes, concerns or if symptoms persist. Dayna Montaño PA-C documented in [facility] Telephone encounter Note * Telephone Encounter - Royce Nguyen MD - 05/04/2024 10:26 AM EST Agree with advise. [facility] Work Phone: 1(523) 934-619112-17-2024 Miscellaneous Notes* Telephone Encounter - Royce Nguyen MD - 05/04/2024 10:26 AM EST Agree with advise. * Telephone Encounter - Kat Aguilar LPN - 05/04/2024 9:22 AM EST Mother calling for pt. Mother reports pt was seen in [facility] Yesterday 12-24 and dx with viral infection. No ATB given. Mother calling today because pt is getting worse. Now has blood shut eye and pressure in right eye. Mother requesting ATB. Instructed mother pt will need to be seen in office or [facility]. Mother will check with pt on what she wants to do. Kat Aguilar LPN documented in this encounterPrem[facility]12-17-2024 Telephone encounter Note * Telephone Encounter - Kat Aguilar LPN - 05/04/2024 9:22 AM EST Mother calling for pt. Mother reports [facility] 05-03[facility]24 and dx with viral infection. No ATB given. Mother calling today because pt is getting worse. Now has blood shut eye and pressure in right eye. Mother requesting ATB. Instructed mother pt will need to be seen in office or can go back to [facility]. Mother will check with pt on what she wants to do. Kat Aguilar LPN [facility]12-16-2024 NoteHNO ID: [id number] Author: ROYCE VIRGEN APRN.NUT CHOPPER Service: ? Author Type: Nurse Practitioner Type: Progress Notes Filed: 05/03/2024 10:24 Note Text: Subjective HPI Nontoxic-appearing female presents urgent care chief complaint cough sore throat nasal congestion headache. Duration of symptoms 5 days. Associated symptoms listed above. Most prominent symptom today is sinus pressure. OTC medications none. Sick contacts unknown. Denies any fever body aches chills. Past medical history prescription medications allergies reviewed. .Patient presents with: Cough: Cough, sinus, ST, CYR and congestion x 5 days PAST MEDICAL HISTORY Diagnosis Date NEGATIVE MEDICAL HISTORY Seasonal allergies 09/22/2013 PAST SURGICAL HISTORY Procedure Laterality Date NONE ALLERGIES Seasonal Allergies MEDICATIONS Levonorgestrel-Ethinyl Estrad 0.1mg - 20mcg per tablet Take 1 tablet by mouth every afternoon. fexofenadine (JULITA ALLERGY) 180 mg tablet Take 1 tablet by mouth once daily. fluticasone (FLONASE) 50 mcg/actuation nasal spray Use 1 [place] in each nostril once daily. FAMILY HISTORY Problem Relation Age of Onset Thyroid Mother lump on thyroid removed other (mvp) Mother 30 mild mitral valve prolapse Heart Maternal Grandfather age 5959 years old Heart Paternal Grandfather NM Hypertension Paternal Grandfather Social History Tobacco Use Smoking status: Never Smokeless tobacco: Never Vaping Use Vaping status: Never Used Substance Use Topics Alcohol use: No Drug use: No BP 98/62 Pulse 83 Temp 36.6 ?C (97.9 ?F) (Tympanic) Resp 18 Wt 54.9 kg (121 lb 0.5 oz) LMP 2023 (Approximate) SpO2 97% BMI 18.56 kg/m? Review of Systems Constitutional: Negative for chills, fever and malaise/fatigue. HENT: Positive for congestion, ear pain and sore throat. Negative for ear discharge and sinus pain. Eyes: Negative for blurred vision, pain, discharge and redness. Respiratory: Positive for cough. Negative for hemoptysis, sputum production, shortness of breath, wheezing and stridor. Cardiovascular: Negative for chest pain. Gastrointestinal: Negative for abdominal pain, diarrhea, nausea and vomiting. Musculoskeletal: Negative for myalgias. Skin: Negative for itching and rash. Neurological: Negative for dizziness and headaches. Objective Physical Exam Constitutional: General: She is not in acute distress. Appearance: She is not diaphoretic. HENT: Head: Normocephalic. Jaw: No trismus, tenderness, swelling or pain on movement. Right Ear: Tympanic membrane, ear canal and external ear normal. Left Ear: Tympanic membrane, ear canal and external ear normal. Nose: Congestion present. Mouth/Throat: Mouth: Mucous membranes are moist. Pharynx: Oropharynx is clear. Uvula midline. No pharyngeal swelling, oropharyngeal exudate, posterior oropharyngeal erythema or uvula swelling. Eyes: Conjunctiva/sclera: Conjunctivae normal. Pupils: Pupils are equal, round, and reactive to light. Cardiovascular: Rate and Rhythm: Normal rate and regular rhythm. Heart sounds: Normal heart sounds. Pulmonary: Effort: Pulmonary effort is normal. No tachypnea, accessory muscle usage or respiratory distress. Breath sounds: Normal breath sounds. No stridor. No wheezing, rhonchi or rales. Abdominal: General: There is no distension. Palpations: Abdomen is soft. Tenderness: There is no abdominal tenderness. There is no guarding or rebound. Musculoskeletal: Cervical back: Normal range of motion and neck supple. No edema, erythema, rigidity or tenderness. No pain with movement. Normal range of motion. Lymphadenopathy: Cervical: No cervical adenopathy. Skin: General: Skin is warm and dry. Neurological: Mental Status: She is alert and oriented to person, place, and time. ASSESSMENT/PLAN: 1. Viral illness - ICD9: 079.99, ICD10: B34.9 - Discussed viral etiology and rationale for treatment. - Symptomatic treatment with prn analgesia - Supportive care with fluids and rest Patient was educated on supportive therapies. Patient will follow up with primary care provider as needed. Patient was instructed to immediately proceed to emergency room for any new, worsening, or symptoms lasting longer than anticipated. The patient's clinical presentation is otherwise unremarkable at this time. Based on exam and clinical finding, the patient is stable for discharge. Plan of care was discussed with patient. Patient verbalizes understanding and agrees to plan of care. This note was generated using [employer] software. It may contain errors in wording, punctuation, or spelling. Royce Virgen APRN.[facility]12-16-2024 History of Present illness Narrative* Royce Virgen APRN.[facility] - 05/03/2024 10:15 AM EST Subjective HPI Nontoxic-appearing female presents urgent care chief complaint cough sore throat nasal congestion headache. Duration of symptoms 5 days. Associated symptoms listed above. Most prominent symptom todayis sinus pressure. OTC medications none. Sick contacts unknown. Denies any fever body aches chills.Past medical history prescription medications allergies reviewed. .Patient presents with: Cough: Cough, sinus, ST, CYR and congestion x 5 days PAST MEDICAL HISTORY Diagnosis Date NEGATIVE MEDICAL HISTORY Seasonal allergies 09/22/2013 PAST SURGICAL HISTORY Procedure Laterality Date NONE ALLERGIES Seasonal Allergies MEDICATIONS Levonorgestrel-Ethinyl Estrad 0.1mg - 20mcg per tablet Take 1 tablet by mouth every afternoon. fexofenadine (JULITA ALLERGY) 180 mg tablet Take 1 tablet by mouth once daily. fluticasone (FLONASE) 50 mcg/actuation nasal spray Use 1 [place] in each nostril once daily. FAMILY HISTORY Problem Relation Age of Onset Thyroid Mother lump on thyroid removed other (mvp) Mother 30 mild mitral valve prolapse Heart Maternal Grandfather age 5959 years old Heart Paternal Grandfather NM Hypertension Paternal Grandfather Social History Tobacco Use Smoking status: Never Smokeless tobacco: Never Vaping Use Vaping status: Never Used Substance Use Topics Alcohol use: No Drug use: No BP 98/62 Pulse 83 Temp 36.6 C (97.9 F) (Tympanic) Resp 18 Wt 54.9 kg (121 lb 0.5 oz) LMP 2023 (Approximate) SpO2 97% BMI 18.56 kg/m Review of Systems Constitutional: Negative for chills, fever and malaise/fatigue. HENT: Positive for congestion, ear pain and sore throat. Negative for ear discharge and sinus pain. Eyes: Negative for blurred vision, pain, discharge and redness. Respiratory: Positive for cough. Negative for hemoptysis, sputum production, shortness of breath, wheezing and stridor. Cardiovascular: Negative for chest pain. Gastrointestinal: Negative for abdominal pain, diarrhea, nausea and vomiting. Musculoskeletal: Negative for myalgias. Skin: Negative for itching and rash. Neurological: Negative for dizziness and headaches. Objective Physical Exam Constitutional: General: She is not in acute distress. Appearance: She is not diaphoretic. HENT: Head: Normocephalic. Jaw: No trismus, tenderness, swelling or pain on movement. Right Ear: Tympanic membrane, ear canal and external ear normal. Left Ear: Tympanic membrane, ear canal and external ear normal. Nose: Congestion present. Mouth/Throat: Mouth: Mucous membranes are moist. Pharynx: Oropharynx is clear. Uvula midline. No pharyngeal swelling, oropharyngeal exudate, posterior oropharyngeal erythema or uvula swelling. Eyes: Conjunctiva/sclera: Conjunctivae normal. Pupils: Pupils are equal, round, and reactive to light. Cardiovascular: Rate and Rhythm: Normal rate and regular rhythm. Heart sounds: Normal heart sounds. Pulmonary: Effort: Pulmonary effort is normal. No tachypnea, accessory muscle usage or respiratory distress. Breath sounds: Normal breath sounds. No stridor. No wheezing, rhonchi or rales. Abdominal: General: There is no distension. Palpations: Abdomen is soft. Tenderness: There is no abdominal tenderness. There is no guarding or rebound. Musculoskeletal: Cervical back: Normal range of motion and neck supple. No edema, erythema, rigidity or tenderness. No pain with movement. Normal range of motion. Lymphadenopathy: Cervical: No cervical adenopathy. Skin: General: Skin is warm and dry. Neurological: Mental Status: She is alert and oriented to person, place, and time. ASSESSMENT/PLAN: 1. Viral illness - ICD9: 079.99, ICD10: B34.9 - Discussed viral etiology and rationale for treatment. - Symptomatic treatment with prn analgesia - Supportive care with fluids and rest Patient was educated on supportive therapies. Patient will follow up with primary care provider as needed. Patient was instructed to immediately proceed to emergency room for any new, worsening, or symptoms lasting longer than anticipated. The patient's clinical presentation is otherwise unremarkable at this time. Based on exam and clinical finding, the patient is stable for discharge. Plan of care was discussed with patient. Patient verbalizes understanding and agrees to plan of care. This note was generated using [employer] software. It may contain errors in wording, punctuation, or spelling. Royce Virgen APRN.[employer] documented in this encounterPrem[facility]10-08-2024 Telephone encounter Note * Telephone Encounter - Cony Mora MA - 02/24/2024 7:24 AM EDT Patient given results and verbalized understanding of instructions given. Cony Mora MA [facility]10-08-2024 Miscellaneous Notes* Telephone Encounter - Cony Mora MA - 02/24/2024 7:24 AM EDT Patient given results and verbalized understanding of instructions given. Cony Mora MA * Telephone Encounter - Missy Shaikh PA - 02/24/2024 7:09 AM EDT Negative COVID flu RSV documented in this encounterPrem[facility]10-08-2024 Telephone encounter Note * Telephone Encounter - Missy Shaikh PA - 02/24/2024 7:09 AM EDT Negative COVID flu RSV [facility] Work Phone: 1(582) 861-984710-07-2024 NoteHNO ID: [id number] Author: LEVI LOPES MD Service: ? Author Type: Physician Type: Progress Notes Filed: 02/23/2024 12:44 Note Text: Patient presents with: Sore Throat: Fatigue, CYR, cough, congestion x 2 days HPI: Feeling sick starting 2 days ago. Her roommate had extended strep illness this fall. Positive symptoms: Cough, Sore throat, Malaise, Fatigue, Headache, Nasal Congestion, Rhinorrhea, Post nasal drainage, Feverish/sweats, Diarrhea, Negative symptoms: Shortness of breath, Vomiting, OTC: Tylenol MEDICATIONS: Current Outpatient Medications Medication Sig Levonorgestrel-Ethinyl Estrad 0.1mg - 20mcg per tablet Take 1 tablet by mouth every afternoon. fexofenadine (JULITA ALLERGY) 180 mg tablet Take 1 tablet by mouth once daily. fluticasone (FLONASE) 50 mcg/actuation nasal spray Use 1 [place] in each nostril once daily. No current facility-administered medications for this visit. ALLERGIES: ALLERGIES Allergen Reactions Seasonal Allergies Other: See Comments Itchy eyes, nasal congestion VITALS: BP 100/58 Pulse 100 Temp 37 ?C (98.6 ?F) Resp 18 Wt 54.2 kg (119 lb 7.8 oz) LMP 2023 (Approximate) SpO2 97% BMI 18.32 kg/m? PHYSICAL EXAM: GEN: mildly ill appearing HEENT: PERRL, EOMI, conjunctiva clear Ears: canals clear. TMs without erythema, bulge, or effusion Sinuses: non-tender frontal sinus, non-tender maxillary sinuses Throat: moist mucous membranes, pharyngeal erythema, no exudate Neck: supple, no thyromegaly, borderline anterior lymphadenopathy HEART: regular rate and rhythm, no murmurs LUNGS: clear to auscultation, no wheezes or crackles, no increased WOB ASSESSMENT/PLAN: 1. Sore throat - ICD9: 462, ICD10: J02.9 (primary diagnosis) 2. URI, acute - ICD9: 465.9, ICD10: J06.9 - STREP A MOLECULAR (POC) - negative - COVID AND INFLUENZA A/B AND RSV PCR, ROUTINE - suspect viral URI - Discussed supportive care treatment with rest, cold medicine, and analgesia. Levi Lopes, [facility]10-07-2024 History of Present illness Narrative* Levi Lopes MD - 02/23/2024 12:36 PM EDT Patient presents with: Sore Throat: Fatigue, CYR, cough, congestion x 2 days HPI: Feeling sick starting 2 days ago. Her roommate had extended strep illness this fall. Positive symptoms: Cough, Sore throat, Malaise, Fatigue, Headache, Nasal Congestion, Rhinorrhea, Post nasal drainage, Feverish/sweats, Diarrhea, Negative symptoms: Shortness of breath, Vomiting, OTC: Tylenol MEDICATIONS: Current Outpatient Medications Medication Sig Levonorgestrel-Ethinyl Estrad 0.1mg - 20mcg per tablet Take 1 tablet by mouth every afternoon. fexofenadine (JULITA ALLERGY) 180 mg tablet Take 1 tablet by mouth once daily. fluticasone (FLONASE) 50 mcg/actuation nasal spray Use 1 [place] in each nostril once daily. No current facility-administered medications for this visit. ALLERGIES: ALLERGIES Allergen Reactions Seasonal Allergies Other: See Comments Itchy eyes, nasal congestion VITALS: BP 100/58 Pulse 100 Temp 37 C (98.6 F) Resp 18 Wt 54.2 kg (119 lb 7.8 oz) LMP 2023 (Approximate) SpO2 97% BMI 18.32 kg/m PHYSICAL EXAM: GEN: mildly ill appearing HEENT: PERRL, EOMI, conjunctiva clear Ears: canals clear. TMs without erythema, bulge, or effusion Sinuses: non-tender frontal sinus, non-tender maxillary sinuses Throat: moist mucous membranes, pharyngeal erythema, no exudate Neck: supple, no thyromegaly, borderline anterior lymphadenopathy HEART: regular rate and rhythm, no murmurs LUNGS: clear to auscultation, no wheezes or crackles, no increased WOB ASSESSMENT/PLAN: 1. Sore throat - ICD9: 462, ICD10: J02.9 (primary diagnosis) 2. URI, acute - ICD9: 465.9, ICD10: J06.9 - STREP A MOLECULAR (POC) - negative - COVID & INFLUENZA A/B & RSV PCR, ROUTINE - suspect viral URI - Discussed supportive care treatment with rest, cold medicine, and analgesia. Levi Lopes MD documented in this encounterPrem[facility]03-06-2024 Miscellaneous Notes* Telephone Encounter - Hailey Ortiz RN - 07/23/2023 12:15 PM EST Patient calls and notified of results. Patient verbalizes understanding. Hailey Ortiz RN * Telephone Encounter - Leodan Kwok LPN - 07/22/2023 8:28 AM EST Left message for pt to contact office. Leodan Kwok LPN * Telephone Encounter - Shraddha Lopez PA-C - 07/22/2023 8:10 AM EST Let patient know that her labs are normal. documented in this encounterPrem[facility]03-04-2024 History of Present illness Narrative* Shraddha Lopez PA-C - 07/21/2023 11:42 AM EST Chief Complaint Patient presents with: Establish Care HPI Barb Bennett is a 18 year old female who presents here today for establishing care. Patient without significant past medical history here to establish care. No concerns today. Patient takes julita and flonase as needed for allergies. Past medical history, appointments, medications, allergies reviewed. Previous Medical History PAST MEDICAL HISTORY Diagnosis Date NEGATIVE MEDICAL HISTORY Previous Surgical History PAST SURGICAL HISTORY Procedure Laterality Date NONE Family History FAMILY HISTORY Problem Relation Age of Onset Thyroid Mother lump on thyroid removed other (mvp) Mother 30 mild mitral valve prolapse Heart Maternal Grandfather age 5959 years old Heart Paternal Grandfather NM Hypertension Paternal Grandfather Patient Allergies ALLERGIES Allergen Reactions Seasonal Allergies Other: See Comments Itchy eyes, nasal congestion Current Medications Current Outpatient Medications on File Prior to Visit Medication Sig FEXOFENADINE/PSEUDOEPHEDRINE (JULITA-D 24 HOUR ORAL) Take 0.5 tablets by mouth once daily as needed. fluticasone (FLONASE) 50 mcg/actuation nasal spray Use 1 [place] in each nostril once daily. No current facility-administered medications on file prior to visit. Social History Social History Tobacco Use Smoking status: Never Smokeless tobacco: Never Vaping Use Vaping Use: Never used Substance Use Topics Alcohol use: No Drug use: No Review of Symptoms REVIEW OF SYSTEMS GENERAL: No weight loss, malaise or fevers NECK: Negative for lumps, goiter, pain and significant neck swelling RESPIRATORY: Negative for cough, hemoptysis, wheezing, COPD, dyspnea or shortness of breath CARDIOVASCULAR: Negative for chest pain, leg swelling, hypertension, CHF or palpitations EXAM: BP 100/70 (BP Site: Left Arm, BP Position: Sitting, BP Cuff Size: Regular Adult) Pulse 80 Temp 36.9 C (98.5 F) Resp 14 Ht 172 cm (5' 7.72) Wt 52.6 kg (116 lb) LMP 2023 (Approximate) BMI 17.79 kg/m General Appearance: Well appearing, alert, in no acute distress, well-hydrated, well nourished.. Neck: Supple, no adenopathy; thyroid symmetric, normal size, no bruits. Lungs: Lungs clear to auscultation. No wheezing, rhonchi, rales.. Heart: RRR without murmur, gallop, or rubs. No ectopy. Extremities: No deformities, edema, skin discoloration, clubbing or cyanosis. Good capillary refill. . Peripheral Pulses: Normal. Health Maintenance List Meningococcal B Vaccine: Consider Based On Risk(1 of 2 - Patient Seeks Protection) Never done GC (Gonorrhea) Screening (18-24) Never done Hepatitis C Screening Never done HIV Screening Never done Chlamydia Screening (18-24) Never done Influenza Vaccine(1) due on 11/16/2023 Depression Assessment due on 05/18/2024 Covid-19 Vaccine(1) due on 07/20/2024 DTaP,Tdap,Td Vaccine(7 - Td or Tdap) due on 12/18/2025 Hepatitis B Vaccine Completed HPV Vaccine Completed Meningococcal Conjugate Vaccine Completed Data reviewed ASSESSMENT/PLAN: 1. Seasonal allergies - ICD9: 477.9, ICD10: J30.2 (primary diagnosis) Stable with OTC Continue prn use. 2. Family history of thyroid disease - ICD9: V18.19, ICD10: Z83.49 Patient [facility] at [facility] wnl. Follow up yearly or sooner as needed. Shraddha Lopez PA-C documented in this encounterPremier Health [facility]07-10-2023 Miscellaneous Notes* Telephone Encounter - Shine Garcia MD - 11/25/2022 2:52 PM EDT The following approved medication requests have been transmitted electronically. Requested Prescriptions Signed Prescriptions Disp Refills hydrocortisone valerate (WESTCORT) 0.2 % cream 45 g 1 Sig: Apply to affected area twice daily for 5 days. Authorizing Provider: SHINE GARCIA MD * Telephone Encounter - Angelica Rome RN - 11/25/2022 2:40 PM EDT Mother calls stating that patient is going to be establishing care with a new physician outside of [facility] (due to new insurance). She is currently having an eczema flare up and ?s if could get a refill on her Westcort cream? Angelica Rome RN documented in this encounterPremier Health [facility]10-20-2022 Instructions* Patient Instructions* Royce Virgen APRN.[employer] - 03/07/2022 11:15 AM EDT [facility] PATIENT INFO ACUTE SINUSITIS OVERVIEW Rhinosinusitis, or more commonly sinusitis, is the medical term for inflammation (swelling) of the lining of the sinuses and nose. The sinuses are the hollow areas within the facial bones that are connected to the nasal openings. The sinuses are lined with mucous membranes, similar to the inside ofthe nose. There are two main types of sinusitis: acute and chronic. Acute sinusitis is inflammation that lasts for less than four weeks while chronic sinusitis lasts for more than 12 weeks. Acute sinusitis is common, affecting approximately one million people per year in the [place]. ACUTE SINUSITIS CAUSES The most common cause of acute sinusitis is a viral infection associated with the common cold. Bacterial sinusitis occurs much less commonly, in only 0.5 to 2 percent of cases, usually as a complication of viral sinusitis. Because antibiotics are effective only against bacterial, and not viral, infections, most people donot need antibiotics for acute sinusitis. ACUTE SINUSITIS SYMPTOMS Symptoms of acute sinusitis include: Nasal congestion or blockage Thick, yellow to green discharge from the nose Pain in the teeth Pain or pressure in the face that is worse when bending forwards Other acute sinusitis symptoms can include fever (temperature greater than 100.4 F or 38 C), fatigue, cough, difficulty or inability to smell, ear pressure or fullness, headache, and bad breath. In most cases, these symptoms develop over the course of one day and begin to improve within seven to 10 days. DO I NEED TO BE EXAMINED? It is difficult to know if you have a viral or bacterial sinus infection initially. However, most people with a viral infection improve without treatment within seven to 10 days after symptoms begin.Bacterial sinusitis also sometimes improves without treatment, although it can also worsen and require treatment. If one or more of the following bothersome symptoms last more than seven days, an examination by a healthcare provider is recommended: Thick, yellow to green discharge from the nose Face or tooth pain, especially if it is only on one side Tenderness over the maxillary sinuses (located on the left and right side of the nose, inside the cheekbones) Symptoms that initially improve and then worsen When to seek immediate help -- If you have one or more of the following symptoms, you should seek medical attention immediately (even if symptoms have been present for less than seven days): High fever (>102.5 F or 39.2 C) Sudden, severe pain in the face or head Double vision or difficulty seeing Confusion or difficulty thinking clearly Swelling or redness around one or both eyes Stiff neck, shortness of breath ACUTE SINUSITIS TREATMENT Initial treatment of a sinus infection aims to relieve symptoms since almost everyone will improve within the first seven to 10 days. Experts recommend avoiding antibiotics during this time unless there is clear evidence of a severe bacterial infection. Initial treatment Pain relief -- Non-prescription pain medications, such as acetaminophen (eg, Tylenol ) or ibuprofen(eg, Motrin , Advil ) are recommended for pain. Nasal irrigation and saline sprays -- Rinsing the nose with a salt-water (saline) solution is called nasal irrigation or nasal lavage. Saline is also available in a standard nasal spray, although this is not as effective as using larger amounts of water in an irrigation. Nasal irrigation is particularly useful for treating drainage down the back of the throat, sneezing, nasal dryness, and congestion. The treatment helps by rinsing out allergens and irritants from thenose. Saline rinses also clean the nasal lining and can be used before applying sprays containing medications, to get a better effect from the medication. Nasal lavage with warmed saline can be performed as needed, once per day, or twice daily for increased symptoms. Nasal lavage carries few risks when performed correctly. Saline nasal sprays and irrigation kits can be purchased [id number]. Saline mixes can also be purchased or patients can make their own solution. A variety of devices, including bulb syringes, Neti pots, and bottle sprayers, may be used to perform nasal lavage; instructions for nasal lavage are provided in the table. At least 200 mL (about 3/4cup) of fluid is recommended for each nostril. Nasal decongestants -- Nasal decongestant sprays, including oxymetazoline (Afrin ) and phenylephrine (Ramy-synephrine ) can be used to temporarily treat congestion. However, these sprays should not beused for more than two to three days due to the risk of rebound congestion (when the nose is congested constantly unless the medication is used repeatedly). Other treatments -- Other treatments for congestion, such as oral antihistamines (such as diphenhydramine/Benadryl ) or zinc supplements are not proven to improve symptoms of sinusitis and can have unwanted side effects. Medications to thin secretions (such as guaifenesin) may help to clear mucus. Secondline treatment -- If symptoms have not improved in seven to ten days, you should arrange for medical evaluation. You may need further treatment. Nasal glucocorticoids -- Nasal glucocorticoids (steroids delivered by a nasal spray) can help to reduce swelling inside the nose, usually within two to three days. These drugs have few side effects and dramatically relieve symptoms in most people. There are a number of nasal glucocorticoids available by prescription. These drugs are all effective, but differ in how frequently they must be used and how much they cost. You may need to use a nasal decongestant for a few days before starting a nasal glucocorticoid to reduce nasal swelling; this will allow the nasal glucocorticoid to reach more areas of the nasal passages Do I need an antibiotic? -- If bothersome symptoms of sinusitis persist for 10 or more days, it is possible that you have bacterial sinusitis. The need for antibiotics depends upon the severity of your symptoms. Mild symptoms -- There are two possible treatment options if you have mild sinusitis symptoms: treat with antibiotics or continue to watch and wait for one week. Watching and waiting is a reasonable option because up to 75 percent of people with bacterial sinusitis improve within one month without antibiotics. During the watch and wait period, treatments to improve symptoms are recommended. If symptoms worsen or do not improve after watching and waiting, treatment with an antibiotic is usually recommended. Treatments to relieve symptoms are recommended while using antibiotics. Moderate or severe symptoms -- Most healthcare providers will prescribe an antibiotic for moderate to severe symptoms (temperature >38.3 C or 101 F and/or severe pain that interferes with usual activities). Treatments to relieve symptoms are also recommended during antibiotic treatment. One of the least expensive and most effective antibiotics for sinusitis is amoxicillin. An alternate antibiotic will be prescribed if you are allergic to penicillin. Regardless of which antibiotic isprescribed, it is important to follow the dosing instructions carefully and to finish the entire course of treatment. Taking the medication less often than prescribed or stopping the medication earlycan lead to complications, such as a recurrent infection. What if I do not improve with treatment? -- If you do not improve or worsen after a course of antibiotics, you should be re-examined. In some cases, symptoms of sinusitis improve but then recur. This is usually because the infection was not completely eliminated by the antibiotic. An alternate antibiotic, extended antibiotic treatment, and/or further testing may be recommended, depending upon your individual situation. [facility] History of Present illness Narrative* Royce Virgen APRN.CNP - 03/07/2022 11:07 AM EDT Subjective HPI Nontoxic-appearing female presents urgent care chief plaint cough sinus congestion headache fatiguesinus pressure. Duration of symptoms 5 days. Associated symptoms listed above. States day 1 she didhave body aches and chills improved. No known sick contacts. Does attend public school. Presents today for possible sinus infection. States she has used OTC medications this is helped slightly. Did have a coughing fit yesterday at school. Believes this is related to nasal drainage. Denies any fevers today. Denies any chest pain shortness of breath pleuritic pain hemoptysis nausea vomiting abdominal pain or change in bowel or bladder habits. Past medical history prescription medication use allerg ies reviewed. .Patient presents with: Cough: Sinus pain and pressure x5 days PAST MEDICAL HISTORY Diagnosis Date NEGATIVE MEDICAL HISTORY PAST SURGICAL HISTORY Procedure Laterality Date NONE ALLERGIES Seasonal Allergies MEDICATIONS FEXOFENADINE/PSEUDOEPHEDRINE (JULITA-D 24 HOUR ORAL) Take 0.5 tablets by mouth once daily as needed. fluticasone (FLONASE) 50 mcg/actuation nasal spray Use 1 [place] in each nostril once daily. FAMILY HISTORY Problem Relation Age of Onset Thyroid Mother lump on thyroid removed other (mvp) Mother 30 mild mitral valve prolapse Heart Paternal Grandfather [place] Hypertension Paternal Grandfather Heart Maternal Grandfather age 5959 years old Social History Tobacco Use Smoking status: Never Smokeless tobacco: Never Substance Use Topics Alcohol use: No Drug use: No Pulse 92 Temp 36.9 C (98.5 F) Resp 18 Wt 49.8 kg (109 lb 12.8 oz) LMP 05/31/2021 SpO2 99% Review of Systems Constitutional: Negative for chills, fever and malaise/fatigue. HENT: Positive for congestion, ear pain and sinus pain. Negative for ear discharge and sore throat. Eyes: Negative for blurred vision, pain, discharge and redness. Respiratory: Positive for cough. Negative for hemoptysis, sputum production, shortness of breath, wheezing and stridor. Cardiovascular: Negative for chest pain. Gastrointestinal: Negative for abdominal pain, diarrhea, nausea and vomiting. Musculoskeletal: Positive for myalgias. Skin: Negative for itching and rash. Neurological: Positive for headaches. Negative for dizziness. Objective Physical Exam Constitutional: General: She is not in acute distress. Appearance: She is not diaphoretic. HENT: Head: Normocephalic. Right Ear: Tympanic membrane, ear canal and external ear normal. Left Ear: Tympanic membrane, ear canal and external ear normal. Nose: Congestion present. Right Sinus: Maxillary sinus tenderness present. Left Sinus: Maxillary sinus tenderness present. Mouth/Throat: Lips: [place]. Mouth: Mucous membranes are moist. Pharynx: Oropharynx is clear. No pharyngeal swelling, oropharyngeal exudate, posterior oropharyngeal erythema or uvula swelling. Eyes: Conjunctiva/sclera: Conjunctivae normal. Pupils: Pupils are equal, round, and reactive to light. Cardiovascular: Rate and Rhythm: Normal rate and regular rhythm. Heart sounds: Normal heart sounds. Pulmonary: Effort: Pulmonary effort is normal. No tachypnea, accessory muscle usage or respiratory distress. Breath sounds: Normal breath sounds. No stridor. No wheezing, rhonchi or rales. Abdominal: Palpations: Abdomen is soft. Tenderness: There is no abdominal tenderness. Musculoskeletal: Cervical back: Normal range of motion and neck supple. No rigidity or tenderness. Lymphadenopathy: Cervical: No cervical adenopathy. Skin: General: Skin is warm and dry. Neurological: Mental Status: She is alert and oriented to person, place, and time. ASSESSMENT/PLAN: 1. URI with cough and congestion - ICD9: 465.9, ICD10: J06.9 Patient diagnosed with viral URI with cough and congestion. We discussed COVID- 19 and influenza testing. This is day 5 of symptoms. We discussed viral etiology versus bacterial cause of sinus pressure. We discussed supportive therapies. Discussed the use of cough suppressants such as honey antihistamines Flonase nasal irrigation. We discussed humidification and increase fluids. Red flags for prompt reevaluation discussed. Follow-up with primary care provider 3 to 5 days symptoms or not improving. Red flags for prompt reevaluation discussed. Will be seen in urgent care or ED for any new, worsening or symptoms lasting longer than anticipated. Father verbalized understanding agrees with plan of care. Royce Virgen APRN.ELYSIA documented in [facility] History of Present illness Narrative* Lani Welch RT(R) - 03/26/2021 12:20 PM EST Radiology Service Progress Note PATIENT NAME: Barb Bennett DATE OF SERVICE: March 26, 2021 TIME: 12:14 PM PATIENT IDENTITY VERIFICATION COMPLETED USING TWO (2) IDENTIFIERS: Name and Date of confirmedby patient verbally. FALL SCREENING: Has the patient had 2 falls in the last year or 1 fall with injury or currently using an Ambulatory Assistive Device (Walker, Cane, Wheelchair, Crutches, etc.)? No PATIENT GENDER DATA: Female. status: : No status: NO. PATIENT RELEVANT IMPLANT DATA REVIEWED: Not Applicable RADIOLOGY DEPARTMENT: General X-ray: Exam(s) Completed: Chest X-Ray PERIPHERAL IV DATA: Not applicable SIGNED BY: RT Radha(R) March 26, 2021 12:14 PM documented in this encounterPrem[facility]* Diagnosis URI with cough and congestion- Primary documented in this encounter [facility] note* Diagnosis Onset Date Resolution Status Lymphadenopathy, axillary ac estephania [facility] Work Phone: Evaluation note* Diagnosis Onset Date Resolution Status Hair loss noneactive [facility] Work Phone: Evaluation note* Diagnosis Seasonal allergies- Primary Allergic rhinitis, cause unspecified Family history of thyroid disease Family history of other endocrine and metabolic diseases Family history of mitral valve prolapse Encounter for lipid screening for cardiovascular disease Screening for lipoid disorders Screening for diabetes mellitus [facility] Cough [facility]* Diagnosis Sore throat- Primary Acute pharyngitis URI, acute Acute upper respiratory infections of unspecified site [facility] this encounter [facility]* Diagnosis Viral illness- Primary Unspecified viral infection, in conditions classified elsewhere and of unspecified site [facility] this encounter [facility]* Diagnosis Sinus congestion- Primary Other diseases of nasal cavity and sinuses Acute conjunctivitis of both eyes, unspecified acute conjunctivitis type documented in this encounter [facility]* Diagnosis Well adult exam- Primary Routine general medical examination at a health care facility Screening for depression Encounter for screening examination for other mental health and behavioral disorders documented in this encounter [facility] noteNo assessment information availableWTrinity [facility] Work Phone: Progress note Author Bety Masters [facility] Note Date/Time January 26, 2025 11:55am [facility] [address], [address] [place] [address] OFFICE VISIT Date of Service: 01/26/25 MR#: [id number] Acct: [id number] Name: BARB BENNETT Rep #: [id number] : 2005 Provider: MARIA DEL ROSARIO Masters Age/Sex: 19/F Location: [facility] [place] Status: Signed Intake Vital Signs 10/29/24 15:49 01/26/25 11:35 01/26/25 11:38 Height 5 ft 8 in 5 ft 8 in 5 ft 8 in Weight: 111 lb 6 oz 113 lb BMI 16.9 17.2 BP 115/75 115/71 Intake Visit Reasons: STD Testing Chief Complaint: STD testing Coating Operator Required: No Is patient in pain?: No Allergies No Known Allergies Allergy (Verified 01/26/25 11:44) Is last menstrual period known: Yes Last Menstrual Period: 01/17/25 Post menopausal: No Patient : No : No PFSH Social History adopted: No number of children: 0 current occupational status: employed 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 HPI STD Testing Details: BARB BENNETT is a 19 year old who presents for STD evaluation. New partner X 1episode. Not currently sexually active, does not want to be. Is no longer taking OCP Female Reproductive History Last Menstrual Period: 01/17/25 Cycle Length: 21-35 Questions: metrorrhagia: No and sexually active: No ROS Const Constitutional: Reports system reviewed and no additional complaints, except as documented Eyes Eyes: Reports system reviewed and no additional complaints, except as documented GI GI: Denies abdominal pain or change in bowel habits : Reports as per HPI Exam Const General: cooperative and no acute distress Orientation: oriented x3 General: bladder normal to palpation External Female Exam: normal external appearance and normal appearance of the urethra Urethra: normal appearance of the urethra Speculum Exam - Vagina: normal appearance of the vagina, normal vaginal discharge, no lesions and nontender Speculum Exam - Cervix: normal appearance of the cervix Bimanual Exam- Vagina & Uterus: normal bimanual exam, uterine size normal, bladder normal to palpation, uterine shape normal, uterine mobility normal and non- tender Bimanual Exam- Adnexa, other: normal adnexae, no masses and non-tender Coding Level of Care Code Off vis,est,level 3 Diagnoses Possible exposure to STD Z20.2 Assessment and Plan Assessment and Plan (1) Possible exposure to STD: Status: Acute Orders: Orders POC Trichomonas Vaginalis Today Z11.3 - Encounter for screening for infections with a predominantly sexual mode of transmission HSV 1&2 IgG Today Z20.2 - Contact with and (suspected) exposure to infections with a predominantly sexual mode of transmission HIV Today Z20.2 - Contact with and (suspected) exposure to infections with a predominantly sexual mode of transmission Syphilis Antibodies Today Z20.2 - Contact with and (suspected) exposure to infections with a predominantly sexual mode of transmission Hepatitis B Surface Antigen Today Z20.2 - Contact with and (suspected) exposureto infections with a predominantly sexual mode of transmission Chlamydia/GC TOÑO aptima Today Z20.2 - Contact with and (suspected) exposure to infections with a predominantly sexual mode of transmission Medications: Discontinued levonorgestrel-ethinyl estrad 0.1-20 mg-mcg (Aviane) Discontinued Reason: Pt no longer taking 1 TAB PO QDAY 28 tabs 12RF Plan See labs pending and call positives Enc condom use Call if wants restart contraception RTO prn, annual exam 01/26/25 1155 <Electronically signed by Bety ghosh REVENUE OFFICER REVENUE OFFICER-C> Date _ Bety Masters REVENUE OFFICER REVENUE OFFICER-C Cosigner Signature: Date (if applicable) CC: ~ [facility] Work Phone: Reason for referral (narrative)No reason for referral information availableWTrinity Health System [facility] Work Phone: Chief Complaint and Reason for Visit Chief Complaint AXILLARY MASS Breast ultrasound/mammo before this appt. Reason for Visit Lymphadenopathy, axi llary Chief Complaint discuss concerns wit h control Reason for Visit Hair loss Chief Complaint Admit Date annual/Problem * PT CAN'T COME IN EARLY* October 29, 2024 3:46pm Reason for Visit Admit Date Irregular menstrual cycle October 29 3:46pm Possible exposure to STD October 29, 2024 3:46pm Women's annual routine gynecological exa mination October 29, 2024 3:46pm Chief Complaint Admit Date annual/Problem * PT CAN'T COME IN EARLY* October 29, 2024 3:46pm STD Testing January 26, 2025 11:34am Reason for Visit Admit Date Irregular menstrual cycle October 29 3:46pm Possible exposure to STD October 29, 2024 3:46pm Women's annual routine gynecological exa mination October 29, 2024 3:46pm Possible exposure to STD January 26, 2025 11:34am Advance Directives No Advanced Directives Records Found Advance Directive Response Recorded Date/ Time Living Will No March 04 6:53pm Power of Storage Consultant No March 04, 2015 6:53pm Summary Purpose Family History No Family History Records FoundNo Family History Records FoundNo Family History Records Found Additional Source Comments Source Comments (unrecognize d section and content) In the event this informatio n is protected by the Federal Confidentiality of Alcohol and Drug Abuse Patient Records regulations: The Federal rules restrict any use of the information to criminally investigate or prosecute any alcohol or drug abuse patient.[facility]In the event this information is protected by the Federal Confidentiality of Alcohol and Drug Abuse Patient Records regulations: The Federal rules restrict any use of the information to criminally investigate or prosecute any alcohol or drug abuse patient.[facility] NorthIn the event this information is protected by the Federal Confidentiality of Alcohol and Drug Abuse Patient Records regulations: The Federal rules restrict any use of the information to criminally investigate or prosecute any alcohol or drug abuse patient.[facility] NorthIn the event this information is protected by the Federal Confidentiality of Alcohol and Drug Abuse Patient Records regulations: The Federal rules restrict any use of the information to criminally investigate or prosecute any alcohol or drug abuse patient.[facility] NorthIn the event this information is protected by the Federal Confidentiality of Alcohol and Drug Abuse Patient Records regulations: The Federal rules restrict any use of the information to criminally investigate or prosecute any alcohol or drug abuse patient.[facility] NorthIn the event this information is protected by the Federal Confidentiality of Alcohol and Drug Abuse Patient Records regulations: The Federal rules restrict any use of the information to criminally investigate or prosecute any alcohol or drug abuse patient.[facility] NorthIn the event this information is protected by the Federal Confidentiality of Alcohol and Drug Abuse Patient Records regulations: The Federal rules restrict any use of the information to criminally investigate or prosecute any alcohol or drug abuse patient.[facility] NorthIn the event this information is protected by the Federal Confidentiality of Alcohol and Drug Abuse Patient Records regulations: The Federal rules restrict any use of the information to criminally investigate or prosecute any alcohol or drug abuse patient.[facility] NorthIn the event this information is protected by the Federal Confidentiality of Alcohol and Drug Abuse Patient Records regulations: The Federal rules restrict any use of the information to criminally investigate or prosecute any alcohol or drug abuse patient.[facility] NorthIn the event this information is protected by the Federal Confidentiality of Alcohol and Drug Abuse Patient Records regulations: The Federal rules restrict any use of the information to criminally investigate or prosecute any alcohol or drug abuse patient.[facility] NorthIn the event this information is protected by the Federal Confidentiality of Alcohol and Drug Abuse Patient Records regulations: The Federal rules restrict any use of the information to criminally investigate or prosecute any alcohol or drug abuse patient.[facility] Reason for Visit (unrecogniz ed section and content) Reason Comments Cough Sinus pain and press ure x5 days Reason Onset Date Comments Refill Request 11/25/2022 Reason Comments Establish Care Reason Comments Results Reason Comments Sore Throat Fatigue, CYR, cough, congestion x 2 days Reason Comments Cough Cough, sinus, ST, CYR and congestion x 5 days Reason Comments Patient Update Reason Comments Eye Problem eye redness and swel ling x 1 day, sinus pressure x 1 week Reason Comments Yearly Exam Care Teams (unrecognized sec tion and content) Candy Depositing Machine Operator Relationship Specialty Start Date End Date Whitley Quan MD [address] [place], [place] [id number] PCP - General Pediatrics 12/13/19 Candy Depositing Machine Operator Relationship Specialty Start Date End Date Whitley Quan MD [address] [place], [place] [id number] PCP - General Pediatrics 12/13/19 Team Status: Active Member Role Status Dates Dr. Whitley Quan MD Family Provider Active Carrie Costa DO Primary Care Provider Active Team Status: Inactive Member Role Status Dates Bety Masters REVENUE OFFICER, REVENUE OFFICER-C Attending Provider Active Carrie Costa DO Primary Care Provider, Referring Provider Active Team Status: Inactive Member Role Status Dates Carrie Costa DO Primary Care Provider Active Bety Masters REVENUE OFFICER, REVENUE OFFICER-C Attending Provider, Referring Provider Active Candy Depositing Machine Operator Relationship Specialty Start Date End Date Royce Nguyen MD [address] [place], [place] [id number] PCP - General Family Medicine 07/21/23 Candy Depositing Machine Operator Relationship Specialty Start Date End Date Royce Nguyen MD [address] [place], [place] [id number] PCP - General Family Medicine 07/21/23 Candy Depositing Machine Operator Relationship Specialty Start Date End Date Whitley Quan MD [address] [place], [place] [id number] PCP - General Pediatrics 12/13/19 07/20/23 Candy Depositing Machine Operator Relationship Specialty Start Date End Date Royce Nguyen MD [address] [place] [address] PCP - General Family Medicine 07/21/23 Candy Depositing Machine Operator Relationship Specialty Start Date End Date Royce Nguyen MD [address] [place] [address] PCP - General Family Medicine 07/21/23 Candy Depositing Machine Operator Relationship Specialty Start Date End Date Royce Nguyen MD [address] [place] [address] PCP - General Family Medicine 07/21/23 Erika Batista, DAT.NUT CHOPPER [address] [place] [address] Licensed Retail Supervisor Family Medicine 04/24/24 Shraddha Lopez PA-C [address] [place] [address] Licensed Retail Supervisor Family Medicine 04/24/24 Candy Depositing Machine Operator Relationship Specialty Start Date End Date Royce Nguyen MD [address] [place] [address] PCP - General Family Medicine 07/21/23 Erika Batista, DAT.NUT CHOPPER [address] [place] [address] Licensed Retail Supervisor Family Medicine 04/24/24 Shraddha Lopez PA-C [address] [place] [address] [facility] Family Medicine 04/24/24 Team Status: Active Member Role Status Dates Dr. Whitley Quan MD Family Provider Active Team Status: Inactive Member Role Status Dates Bety Masters REVENUE OFFICER, REVENUE OFFICER-C Attending Provider Active Start: October 25, 2024 End: October 25, 2024 Team Status: Inactive Member Role Status Dates Beth Case NP-C Attending Provider Active Start: October 29, 2024 End: October 29, 2024 Team Status: Active Member Role Status Dates Dr. Whitley Quan MD Family Provider Active No Primary Care Physician Primary Care Provider Active Team Status: Inactive Member Role Status Dates No Primary Care Physician Primary Care Provider Active Start: October 29, 2024 End: October 29, 2024 ELY BayC Attending Provider Active Start: October 29, 2024 End: October 29, 2024 Beth Case NP-C Referring Provider Active Start: October 29, 2024 End: October 29, 2024 Team Status: Active Member Role/Relationship Status Dates Dr. Whitley Quan MD Family Provider Active No Primary Care Physician Primary Care Provider Active Team Status: Inactive Member Role/Relationship Status Dates Bety Masters REVENUE OFFICER, REVENUE OFFICER-C Attending Provider Active Start: October 25, 2024 End: October 25, 2024 Team Status: Inactive Member Role/Relationship Status Dates ELY BayC Attending Provider Active Start: October 29, 2024 End: October 29, 2024 Team Status: Inactive Member Role/Relationship Status Dates No Primary Care Physician Primary Care Provider Active Start: October 29, 2024 End: October 29, 2024 Beth Case NP-C Attending Provider Active Start: October 29, 2024 End: October 29, 2024 Beth Case NP-C Referring Provider Active Start: October 29, 2024 End: October 29, 2024 Team Status: Inactive Member Role/Relationship Status Dates No Primary Care Physician Primary Care Provider Active Start: January 26, 2025 End: January 26, 2025 No Primary Care Physician Referring Provider Active Start: January 26, 2025 End: January 26, 2025 Bety Masters REVENUE OFFICER, REVENUE OFFICER-C Attending Provider Active Start: January 26, 2025 End: January 26, 2025 Team Status: Active Member Role/Relationship Status Dates No Primary Care Physician Primary Care Provider Active Start: January 26, 2025 Bety Masters NP REVENUE OFFICER-C Attending Provider Active Start: January 26, 2025 Bety Masters NP REVENUE OFFICER-C Referring Provider Active Start: January 26, 2025 Team Status: Active Member Role/Relationship Status Dates Dr. Whitley Quan MD Primary care physician Active No Primary Care Physician Primary care physician Activ e Team Status: Inactive Member Role/Relationship Status Dates Bety Masters NP REVENUE OFFICER-C Attending physician Active Start: October 25, 2024 End: October 25, 2024 Team Status: Inactive Member Role/Relationship Status Dates MARIA DEL ROSARIO Bay Attending physician Active Start: October 29, 2024 End: October 29, 2024 Team Status: Inactive Member Role/Relationship Status Dates No Primary Care Physician Primary care physician Activ e Start: October 29, 2024 End: October 29, 2024 MARIA DEL ROSARIO Bay Attending physician Active Start: October 29, 2024 End: October 29, 2024 MARIA DEL ROSARIO Bay Referring Provider Active Start: October 29, 2024 End: October 29, 2024 Team Status: Inactive Member Role/Relationship Status Dates No Primary Care Physician Primary care physician Activ e Start: January 26, 2025 End: January 26, 2025 No Primary Care Physician Referring Provider Active Start: January 26, 2025 End: January 26, 2025 Bety Masters NP REVENUE OFFICER-C Attending physician Active Start: January 26, 2025 End: January 26, 2025 Team Status: Inactive Member Role/Relationship Status Dates No Primary Care Physician Primary care physician Activ e Start: January 26, 2025 End: January 26, 2025 Bety Masters NP REVENUE OFFICER-C Attending physician Active Start: January 26, 2025 End: January 26, 2025 Bety Masters NP REVENUE OFFICER-C Referring Provider Active Start: January 26, 2025 End: January 26, 2025 Goals (unrecognized section and content) Goals may be documented in a n alternate sectionGoals may be documented in an alternate sectionGoals may be documented in an alternate sectionGoals may be documented in an alternate sectionGoals may be documented in an alternate sectionGoals may be documented in an alternate sectionGoals may be documented in an alternate section INFORMATION SOURCE (unrecogn ized section and content) DATE CREATED AUTHOR 08/22/2023 [facility] DATE CREATED AUTHOR AUTHOR'S ORGANJANET ATION 10/01/2024 [facility] DATE CREATED AUTHOR AUTHOR'S ORGANIZ ATION 02/04/2025 [facility] FOR RECORDS PERTAINING TO PATIENTS WHO ARE OR HAVE BEEN ENROLLED IN A CHEMICAL DEPENDENCY/SUBSTANCEABUSE PROGRAM, SOME INFORMATION MAY BE OMITTED. This clinical summary was aggregated from multiple sources. Caution should be exercised in using it in the provision of clinical care. This summary normalizes information from multiple sources, and as a consequence, information in this document may materially change the coding, format and clinical context of patient data. In addition, data may be omitted in some cases. CLINICAL DECISIONS SHOULD BE BASED ON THE PRIMARY CLINICAL RECORDS. [employer] provides no warranty or guarantee of the accuracy or completeness of information in this document.
[2025-05-11 10:50] LABS: Mucous, Urine 2+ /hpf (<or=2+); Squamous Epithelial Cells - UA 5-10 SEEN /hpf (5-10)
[2025-05-11 11:00] LABS: AST(SGOT) 31 U/L (<=31); Alanine Aminotransfer ALT/SGPT 32 U/L (<=34); Albumin, Serum 4.8 g/dL (3.5-5.0); Alkaline Phosphatase 55 U/L (35-104); Anion Gap 11 (7-18); BUN 17 mg/dL (4-19); BUN/Creat Ratio 20.3 RATIO (10-20); Calcium,Total 9.2 mg/dL (7.6-11.0); Carbon Dioxide 23.4 mmol/L (20.0-29.0); Chloride 103 mmol/L (96-106); Estimated Creatinine Clearance 87.97 ml/min (50-250); Globulin 2.9 g/dL (2.2-4.2); Glucose 95 mg/dL (70-99); Lipase 34 U/L (13-75); Potassium 3.8 mmol/L (3.5-5.1)
[2025-05-11 11:59] VITALS: BP 105/70; PULSE 97; RESP 16; TEMP 36.4; O2SAT 100
== END 2025-05-11 12:04 | disposition home or self-care (01) ==
PROVIDERS: Emergency Provider Student in an Organized Health Care Education/Training Program; PCP Physician Assistant; Visit Provider Student in an Organized Health Care Education/Training Program
DX: R11.2 Nausea with vomiting, unspecified (principal); R19.7 Diarrhea, unspecified; R10.9 Unspecified abdominal pain; D72.819 Decreased white blood cell count, unspecified
CPT/HCPCS: 80053; 81001; 83690; 84703; 85025; 96361; 96374; 99284; J2405